=== PATIENT | male | born 1940 | race African-American/Black ===

== ENCOUNTER 2016-09-20 09:29 | Inpatient (IN) | payer OTHER ==
[2016-09-20 10:18] VITALS: BMI 22.1
--- NOTE | 2016-09-20 12:44 | HP ---
CIWA Score - CIWA Score Nausea/Vomitin-Int. Nausea w/Dry Heave Muscle Tremors: 4-Moderate,w/Arms Extend Anxiety: 4-Mod. Anxious/Guarded Agitation: 4-Moderately Restless Paroxysmal Sweats: 1-Minimal Palms Moist Orientation: 0-Oriented Tacttile Disturbances: 3-Moderate Itch/Numb/Burn Auditory Disturbances: 0-None Visual Disturbances: 0-None Headache: 1-Very Mild CIWA-Ar Total Score: 21 Admission ROS BHS - HPI Chief Complaint: DETOX TX FOR ALCOHOL DEPENDENCE Allergies/Adverse Reactions: Allergies Allergy/AdvReac Type Severity Reaction Status Date / Time No Known Allergies Allergy Verified 09/20/16 10:56 History of Present Illness: 76 Y/O AA/MALE WITH A HX OF ALCOHOL AND COCAINE DEPENDENCE SEEKING DETOX TX Exam Limitations: No Limitations - Ebola screening Have you traveled outside of the country in the last 21 days: No Have you had contact with anyone from an Ebola affected area: No Have you been sick,other than usual withdrawal symptoms: No - Review of Systems Constitutional: Chills, Loss of Appetite, Night Sweats, Changes in sleep, Unintentional Wgt. Loss EENT: reports: Blurred Vision (WEARS GLASSES), Dental Problems (BILATERAL DENTURES) Respiratory: reports: No Symptoms reported Cardiac: reports: Lightheadedness GI: reports: Constipated, Diarrhea, Nausea, Poor Appetite, Poor Fluid Intake, Vomiting : reports: Dysuria (SOMETIMES.) Musculoskeletal: reports: Back Pain, Joint Pain (LEFT LEG), Muscle Pain, Other ( PT STATES USES CANE BUT NOT WITH PATIENT NOW..."STOLEN".) Integumentary: reports: No Symptoms Reported Neuro: reports: Headache, Numbness, Tingling, Tremors, Unsteady Gait, Dizziness Endocrine: reports: No Symptoms Reported Hematology: reports: No Symptoms Reported Psychiatric: reports: Orientated x3, Anxious, Depressed Other Systems: Reviewed and Negative Patient History - Patient Medical History Hx Anemia: No Hx Asthma: No Hx Chronic Obstructive Pulmonary Disease (COPD): No Hx Cancer: No Hx Cardiac Disorders: No Hx Congestive Heart Failure: No Hx Hypertension: Yes (TAKES MED) Hx Hypercholesterolemia: No Hx Pacemaker: No HX Cerebrovascular Accident: No Hx Seizures: No Hx Dementia: No Hx Diabetes: No Hx Gastrointestinal Disorders: No Hx Liver Disease: No Hx Genitourinary Disorders: No Hx Sexually Transmitted Disorders: No Hx Renal Disease (ESRD): No Hx Thyroid Disease: No Hx Human Immunodeficiency Virus (HIV): No (NEGATIVE HX) Hx Hepatitis C: Yes (NO TREATMENT) Hx Depression: Yes (ON ZOLOFT) Hx Suicide Attempt: No Hx Bipolar Disorder: No Hx Schizophrenia: No - Patient Surgical History Past Surgical History: Yes Hx Neurologic Surgery: No Hx Cataract Extraction: No Hx Cardiac Surgery: No Hx Lung Surgery: No Hx Breast Surgery: No Hx Breast Biopsy: No Hx Abdominal Surgery: No Hx Appendectomy: No Hx Cholecystectomy: No Hx Genitourinary Surgery: No Hx Orthopedic Surgery: Yes (left foot callous removal) Anesthesia Reaction: No - PPD History Previous Implant?: Yes Documented Results: Negative w/proof Implanted On Prior [facility] Admission?: Yes Date: 01/05/15 Results: 0 mm PPD to be Administered?: Yes - Reproductive History Patient is a Female of Child Bearing Age (11 -55 yrs old): No (MALE) - Smoking Cessation Smoking history: Current every day smoker Have you smoked in the past 12 months: Yes Aproximately how many cigarettes per day: 10 Hx Chewing Tobacco Use: No Initiated information on smoking cessation: Yes 'Breaking Loose' booklet given: 09/20/16 - Substance & Tx. History Hx Alcohol Use: Yes (VODKA/BEER) Hx Substance Use: Yes (CRACK) Substance Use Type: Alcohol, Cocaine Hx Substance Use Treatment: Yes ([facility]) - Substances Abused Crack Route: Smoking Frequency: Daily Amount used: $100-150 Age of first use: 45 Date of Last Use: 09/18/16 Alcohol-vodka/beer Route: Oral Frequency: Daily Amount used: 2 pts./2 (40 oz.) Age of first use: 20 Date of Last Use: 09/18/16 Family Disease History - Family Disease History Family Disease History: Other: Brother (ONE BROTHER ADDICTED TO ETOH AND DRUGS AND ) Admission Physical Exam BHS - Vital Signs Vital Signs: Vital Signs - 24 hr 09/20/16 10:17 Temperature 96.8 F L Pulse Rate 72 Respiratory 18 Rate Blood Pressure 172/87 - Physical General Appearance: Yes: Moderate Distress, Irritable, Sweating, Anxious HEENTM: Yes: EOMI, Normocephalic, ALEXANDRA, Pharynx Normal, Nasal Congestion, Rhinorrhea Respiratory: Yes: Chest Non-Tender, Lungs Clear, Normal Breath Sounds, No Respiratory Distress Neck: Yes: Supple, Trachea in good position Breast: Yes: Breast Exam Deferred Cardiology: Yes: Regular Rhythm, Regular Rate, S1, S2 Abdominal: Yes: Normal Bowel Sounds, Non Tender, Soft Genitourinary: Yes: Other (N/C) Back: Yes: Within Normal Limits Musculoskeletal: Yes: full range of Motion, Gait Steady Extremities: Yes: Normal Range of Motion, Non-Tender, Tremors 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 intact, Fully Oriented, Alert Integumentary: Yes: Dry, Warm Lymphatic: Yes: Within Normal Limits - Diagnostic (1) Alcohol dependence with uncomplicated withdrawal Current Visit: Yes Status: Acute (2) Weight decreased Current Visit: Yes Status: Chronic (3) Cocaine dependence, uncomplicated Current Visit: Yes Status: Acute Cleared for Admission [facility] - Detox or Rehab [facility] Level of Care: Medically Managed Detox Regimen/Protocol: Librium S Breath Alcohol Content Breath Alcohol Content: 0 Urine Drug Screen - Results Drug Screen Negative: No Urine Drug Screen Results: ZACHARY-Cocaine
[2016-09-20] MEDS ORDERED: MAG HYDROX/AL HYDROX/SIMETH 30 ML UNIT-DOSE CUP PO PRN (12:52)
[2016-09-20] MEDS ORDERED: NICOTINE POLACRILEX 2 MG GUM BUC PRN (12:52)
[2016-09-20] MEDS ORDERED: LOPERAMIDE HCL 2 MG CAPSULE PO PRN (12:52)
[2016-09-20] MEDS ORDERED: P-EPHED 60MG/TRIPROLIDI 2.5MG TABLET PO PRN (12:52)
[2016-09-20] MEDS ORDERED: MAGNESIUM HYDROX 2400MG/30ML ORAL SUSPENSION 30 ML CUP PO PRN (12:52)
[2016-09-20] MEDS ORDERED: MAGNESIUM CITRATE 300 ML BOTTLE PO PRN (12:52)
[2016-09-20] MEDS ORDERED: hydrOXYzine PAMOATE 25 MG CAPSULE (FP) PO PRN (12:52)
[2016-09-20] MEDS ORDERED: ACETAMINOPHEN 325 MG TABLET (FP) PO PRN (12:52)
[2016-09-20] MEDS ORDERED: chlordiazePOXIDE HCL 25 MG CAPSULE PO PRN (12:52)
[2016-09-20] MEDS ORDERED: IBUPROFEN 400 MG TABLET (FP) PO PRN (12:52)
[2016-09-20] MEDS ORDERED: MENTHOL/PHENOL 1 EACH UD MM PRN (12:52)
[2016-09-20] MEDS ORDERED: guaiFENesin/D-METHORPHAN HB 10 ML UNIT-DOSE CUPS PO PRN (12:52)
[2016-09-20] MEDS ORDERED: chlordiazePOXIDE HCL 25 MG CAPSULE PO ONE (13:06)
[2016-09-20] MEDS: NICOTINE 14 MG/24 HOURS TOPICAL PATCH TD SCH (14:51)
[2016-09-20] MEDS: LISINOPRIL 10 MG TABLET (FP) PO SCH (15:21)
[2016-09-20] MEDS: chlordiazePOXIDE HCL 25 MG CAPSULE PO SCH ×2 (17:15→22:18)
[2016-09-20 18:16] LABS: URINE APPEARANCE CLEAR; URINE BILIRUBIN NEGATIVE (NEGATIVE); URINE BLOOD NEGATIVE (NEGATIVE); URINE COLOR LTYELLOW; URINE GLUCOSE (UA) NEGATIVE (NEGATIVE); URINE KETONE NEGATIVE (NEGATIVE); URINE LEUK ESTERASE TRACE (NEGATIVE); URINE NITRITE NEGATIVE (NEGATIVE); URINE PROTEIN NEGATIVE (NEGATIVE); URINE UROBILINOGEN NEGATIVE E.U./dl (0.2-1.0)
[2016-09-20 18:20] LABS: URINE MUCUS RARE; URINE RBC 1 /hpf (0-3); URINE WBC 2 /hpf (3-5)
[2016-09-20] MEDS ORDERED: SILVER SULFADIAZINE 1% TOP CREAM 400 GM JAR TP SCH (22:00)
[2016-09-20] MEDS: THIAMINE HCL 100 MG TABLET (FP) PO SCH (22:19)
[2016-09-20] MEDS: diphenhydrAMINE HCL 50 MG CAPSULE PO PRN (22:19)
[2016-09-21] MEDS: chlordiazePOXIDE HCL 25 MG CAPSULE PO SCH ×4 (05:30→23:03)
[2016-09-21 08:54] LABS: HIV 1 & 2 AB NEGATIVE; HIV 1 AGp24 NEGATIVE
[2016-09-21 10:11] LABS: MCHC 32.7 g/dl (32.0-35.9); MEAN CELL VOLUME 97.8 fl (80-96); MEAN PLT VOLUME 9.8 fl (7.5-11.1); PLATELET COUNT 143 K/MM3 (134-434); RDW 13.7 % (11.9-15.9); WHITE BLOOD COUNT 7.3 K/mm3 (4.0-10.0)
[2016-09-21] MEDS: PRENATAL VITAMINS W/ FOLIC ACID TABLET (FP) PO SCH (10:33)
[2016-09-21] MEDS: LISINOPRIL 10 MG TABLET (FP) PO SCH (10:33)
[2016-09-21] MEDS: NICOTINE 14 MG/24 HOURS TOPICAL PATCH TD SCH (10:34)
--- NOTE | 2016-09-21 10:47 | PN ---
S CIWA - CIWA Score Nausea/Vomitin-No Nausea/No Vomiting Muscle Tremors: 4-Moderate,w/Arms Extend Anxiety: 3 Agitation: 4-Moderately Restless Paroxysmal Sweats: 3 Orientation: 0-Oriented Tacttile Disturbances: 0-None Auditory Disturbances: 0-None Visual Disturbances: 0-None Headache: 1-Very Mild CIWA-Ar Total Score: 15 BHS Progress Note (SOAP) Subjective: tired irritable agitation anxiety sweats Objective: 09/21/16 10:46 Vital Signs Temperature 98.1 F 09/21/16 06:54 Pulse Rate 94 H 09/21/16 06:54 Respiratory Rate 18 09/21/16 06:54 Blood Pressure 89/59 09/21/16 06:54 O2 Sat by Pulse Oximetry (%) Laboratory Tests 09/20/16 09/20/16 09/21/16 12:40 14:00 06:00 WBC 7.3 RBC 4.92 Hgb 15.7 D Hct 48.1 MCV 97.8 H MCHC 32.7 RDW 13.7 D Plt Count 143 MPV 9.8 Urine Color Ltyellow Urine Appearance Clear Urine pH 6.0 Ur Specific [place] 1.015 Urine Protein Negative Urine Glucose (UA) Negative Urine Ketones Negative Urine Blood Negative Urine Nitrite Negative Urine Bilirubin Negative Urine Urobilinogen Negative Ur Leukocyte Esterase Trace H Urine RBC 1 Urine WBC 2 Ur Epithelial Cells Rare Urine Mucus Rare HIV 1&2 Antibody Screen Negative HIV P24 Antigen Negative labs pending awake/alert lying in bed no acute distress Assessment: 09/21/16 10:47 withdrawal sx Plan: continue detox increase fluids labs pending
[2016-09-21 10:51] LABS: ALBUMIN 3.3 g/dl (3.4-5.0); BILIRUBIN,TOTAL 0.4 mg/dL (0.2-1.0); COCKROFT - GAULT 51.18; CREATININE 1.2 mg/dL (0.7-1.3); TOT PROT 6.9 g/dl (6.4-8.2)
--- NOTE | 2016-09-21 15:15 | CONSULT ---
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 Substance Abuse History: - Smoking Cessation. Smoking history: Current every day smoker. Have you smoked in the past 12 months: Yes. Aproximately how many cigarettes per day: 10. Hx Chewing Tobacco Use: No. Initiated information on smoking cessation: Yes. 'Breaking Loose' booklet given: 09/20/16. - Substance & Tx. History. Hx Alcohol Use: Yes (VODKA/BEER). Hx Substance Use: Yes (CRACK) . Substance Use Type: Alcohol, Cocaine. Hx Substance Use Treatment: Yes ([facility]). - Substances Abused. Crack. Route: Smoking. Frequency: Daily. Amount used: $100-150. Age of first use: 45. Date of Last Use: 09/18/16. Alcohol-vodka/beer. Route: Oral. Frequency: Daily. Amount used: 2 pts./2 (40 oz.). Age of first use: 20. Date of Last Use: 09/18/16. Confirmed by patient. Medical History: Hypertension,hepatitis C and lower back pain.Patient uses a cane for ambulation. Psychiatric History: First contact with Psychiatry occurred in 2009 through a stay at a 28 day inpatient rehabilitation program in [place], [place].Mr Segundo reports that he was diagnosed,then,with MDD and prescribed zoloft.Did not follow up with aftercare.Patient states that he was admitted to a mental health facility in [facility] three months ago (it is not clear whether it was detox/ rehab or an inpatient psychiatric unit).Regardless,he was again offered zoloft for antidepressant treatment.Mr Segundo explains that he moved to [facility] after discharge.No OPD care.Has not taken zoloft (50 mg/day) for several months.Patient denies history of suicide attempts. Physical/Sexual Abuse/Trauma History: Patient denies. Additional Comment: Urine Drug Screen Results: ZACHARY-Cocaine.Noted. Mental Status Exam - Mental Status Exam Alert and Oriented to: Time (slow,unsteady gait ; moves around in a stooped posture ; needs cane for ambulation), Place, Person Cognitive Function: Grossly Intact Patient Appearance: Disheveled Mood: Withdrawn, Apprehensive Affect: Mood Congruent Patient Behavior: Fatigued, Appropriate, Cooperative Speech Pattern: Clear, Appropriate Voice Loudness: Moderately Soft/Quiet Thought Process: Goal Oriented Thought Disorder: Not Present Hallucinations: Denies Suicidal Ideation: Denies Homicidal Ideation: Denies Insight/Judgement: Poor Sleep: Fair Appetite: Fair Gait/Station: Other (slow,unsteady gait ; moves around in a stooped posture ; need cane for ambulation) Psychiatric Findings - Problem List ([place] 1, 2,3) (1) Alcohol dependence with uncomplicated withdrawal Current Visit: Yes Status: Acute (2) Cocaine dependence, uncomplicated Current Visit: Yes Status: Acute (3) Nicotine dependence Current Visit: Yes Status: Acute Qualifiers: Nicotine product type: cigarettes Substance use status: uncomplicated Qualified Code(s): F17.210 - Nicotine dependence, cigarettes, uncomplicated (4) Substance induced mood disorder Current Visit: Yes Status: Acute (5) Weight decreased Current Visit: Yes Status: Chronic (6) Arthritis Current Visit: Yes Status: Chronic (7) HTN (hypertension) Current Visit: Yes Status: Chronic Qualifiers: Hypertension type: essential hypertension Qualified Code(s): I10 - Essential (primary) hypertension (8) Hepatitis C infection Current Visit: Yes Status: Chronic Qualifiers: Viral hepatitis chronicity: chronic Hepatic coma status: without hepatic coma Qualified Code(s): B18.2 - Chronic viral hepatitis C - Initial Treatment Plan Initial Treatment Plan: Psychoeducation.Detoxification.Observation.Review of pharmacy claims indicates current treatment with a psychostimulant (amphetamine salt/generic for adderall).Not on sertraline (last prescribed on 09/2015).
[2016-09-21] MEDS: THIAMINE HCL 100 MG TABLET (FP) PO SCH (23:03)
[2016-09-22] MEDS: chlordiazePOXIDE HCL 25 MG CAPSULE PO SCH ×2 (05:18→10:35)
--- NOTE | 2016-09-22 08:28 | EKG ---
Test Reason : Blood Pressure : / mmHG Vent. Rate : 071 BPM Atrial Rate : 071 BPM P-R Int : 182 ms QRS Dur : 096 ms QT Int : 398 ms P-R-T Axes : 054 -29 007 degrees QTc Int : 432 ms NORMAL SINUS RHYTHM POSSIBLE ANTEROSEPTAL INFARCT , AGE UNDETERMINED ABNORMAL ECG NO PREVIOUS ECGS AVAILABLE Confirmed by DAYNA CALDERON, BRIDGER ([id number]) on 09/22/2016 8:27:47 AM Referred By: Stuart Del Rio Confirmed By:BRIDGER MCINTOSH MD
[2016-09-22] MEDS: NICOTINE 14 MG/24 HOURS TOPICAL PATCH TD SCH (10:35)
[2016-09-22] MEDS: PRENATAL VITAMINS W/ FOLIC ACID TABLET (FP) PO SCH (10:35)
[2016-09-22] MEDS: LISINOPRIL 10 MG TABLET (FP) PO SCH (10:35)
--- NOTE | 2016-09-22 11:51 | EKG ---
Test Reason : Blood Pressure : / mmHG Vent. Rate : 080 BPM Atrial Rate : 080 BPM P-R Int : 174 ms QRS Dur : 098 ms QT Int : 386 ms P-R-T Axes : 059 -43 006 degrees QTc Int : 445 ms NORMAL SINUS RHYTHM POSSIBLE LEFT ATRIAL ENLARGEMENT LEFT AXIS DEVIATION ANTEROSEPTAL INFARCT (CITED ON OR BEFORE 20-SEP-2016) ABNORMAL ECG WHEN COMPARED WITH ECG OF 20-SEP-2016 14:07, QUESTIONABLE CHANGE IN INITIAL FORCES OF SEPTAL LEADS T WAVE AMPLITUDE HAS INCREASED IN LATERAL LEADS Confirmed by SARAH CALDERON, YOCASTA ([id number]) on 09/22/2016 11:50:56 AM Referred By: Stuart Del Rio Confirmed By:YOCASTA SMITH MD
--- NOTE | 2016-09-22 16:06 | PN ---
S CIWA - CIWA Score Nausea/Vomitin Muscle Tremors: 3 Anxiety: 3 Agitation: 2 Paroxysmal Sweats: 3 Orientation: 0-Oriented Tacttile Disturbances: 1-Very Mild Itch/Numbness Auditory Disturbances: 0-None Visual Disturbances: 0-None Headache: 0-None Present CIWA-Ar Total Score: 14 S Progress Note (SOAP) Subjective: INTERRUPTED SLEEP, SWEATS.SHAKES , Objective: 09/22/16 16:05 Vital Signs Temperature 96.9 F L 09/22/16 14:05 Pulse Rate 84 09/22/16 14:05 Respiratory Rate 20 09/22/16 14:05 Blood Pressure 147/99 09/22/16 14:05 O2 Sat by Pulse Oximetry (%) Laboratory Tests 09/20/16 09/20/16 09/21/16 12:40 14:00 06:00 WBC 7.3 RBC 4.92 Hgb 15.7 D Hct 48.1 MCV 97.8 H MCHC 32.7 RDW 13.7 D Plt Count 143 MPV 9.8 Sodium Potassium Chloride Carbon Dioxide Anion Gap BUN Creatinine Creat Clearance w eGFR Random Glucose Calcium Total Bilirubin AST ALT Alkaline Phosphatase Total Protein Albumin Urine Color Ltyellow Urine Appearance Clear Urine pH 6.0 Ur Specific [place] 1.015 Urine Protein Negative Urine Glucose (UA) Negative Urine Ketones Negative Urine Blood Negative Urine Nitrite Negative Urine Bilirubin Negative Urine Urobilinogen Negative Ur Leukocyte Esterase Trace H Urine RBC 1 Urine WBC 2 Ur Epithelial Cells Rare Urine Mucus Rare RPR Titer HIV 1&2 Antibody Screen Negative HIV P24 Antigen Negative 09/21/16 09/21/16 06:00 06:00 WBC RBC Hgb Hct MCV MCHC RDW Plt Count MPV Sodium 140 Potassium 4.6 Chloride 105 Carbon Dioxide 27 Anion Gap 8 BUN 21 H Creatinine 1.2 Creat Clearance w eGFR 59.02 Random Glucose 88 Calcium 9.0 Total Bilirubin 0.4 AST 38 H D ALT 51 D Alkaline Phosphatase 75 Total Protein 6.9 Albumin 3.3 L Urine Color Urine Appearance Urine pH Ur Specific [place] Urine Protein Urine Glucose (UA) Urine Ketones Urine Blood Urine Nitrite Urine Bilirubin Urine Urobilinogen Ur Leukocyte Esterase Urine RBC Urine WBC Ur Epithelial Cells Urine Mucus RPR Titer Nonreactive HIV 1&2 Antibody Screen HIV P24 Antigen PT AOX3 IN NAD AMBULATING Assessment: 09/22/16 16:05 WITHDRAWAL SX;S Plan: CONT. DETOX INCREASE FLUIDS
[2016-09-22] MEDS: chlordiazePOXIDE 5 MG CAPSULE PO SCH ×2 (17:38→22:48)
[2016-09-22] MEDS: THIAMINE HCL 100 MG TABLET (FP) PO SCH (22:48)
[2016-09-22] MEDS: diphenhydrAMINE HCL 50 MG CAPSULE PO PRN (22:50)
[2016-09-23] MEDS: chlordiazePOXIDE 5 MG CAPSULE PO SCH ×2 (05:45→10:43)
[2016-09-23] MEDS: PRENATAL VITAMINS W/ FOLIC ACID TABLET (FP) PO SCH (10:43)
[2016-09-23] MEDS: NICOTINE 14 MG/24 HOURS TOPICAL PATCH TD SCH (10:44)
[2016-09-23] MEDS: LISINOPRIL 10 MG TABLET (FP) PO SCH (10:44)
--- NOTE | 2016-09-23 12:02 | PN ---
BHS Progress Note (SOAP) Subjective: sweats interrupted sleep Objective: 09/23/16 12:01 Vital Signs Temperature 95.5 F L 09/23/16 09:41 Pulse Rate 85 09/23/16 09:41 Respiratory Rate 16 09/23/16 09:41 Blood Pressure 161/85 09/23/16 09:41 O2 Sat by Pulse Oximetry (%) awake/alert lying in bed no acute distress Assessment: 09/23/16 12:02 withdrawal sx Plan: continue detox d/c in am
[2016-09-23] MEDS: chlordiazePOXIDE HCL 10 MG CAPSULE PO SCH ×2 (17:54→22:20)
[2016-09-23] MEDS: diphenhydrAMINE HCL 50 MG CAPSULE PO PRN (22:20)
[2016-09-23] MEDS: THIAMINE HCL 100 MG TABLET (FP) PO SCH (22:20)
[2016-09-24] MEDS: chlordiazePOXIDE HCL 10 MG CAPSULE PO SCH ×2 (05:22→12:11)
--- NOTE | 2016-09-24 09:14 | PN ---
S Progress Note (SOAP) Subjective: alert,no complaint Objective: 09/24/16 09:13 Vital Signs Temperature 96.3 F L 09/24/16 06:00 Pulse Rate 66 09/24/16 06:00 Respiratory Rate 18 09/24/16 06:00 Blood Pressure 118/70 09/24/16 06:00 O2 Sat by Pulse Oximetry (%) Assessment: 09/24/16 09:13 detox completed,no withdrawal symptom Plan: transfer to rehab tor continuing care
--- NOTE | 2016-09-24 10:28 | DS ---
[facility] Detox Discharge Summary Admission Date: 09/20/16 Discharge Date: 09/24/16 - History Present History: Alcohol Dependence, Cocaine Dependence Additional Comments: transfer to [facility] for continue further level of care Pertinent Past History: weight decreased - Physical Exam Results Vital Signs: Vital Signs Temperature 96.3 F L 09/24/16 06:00 Pulse Rate 66 09/24/16 06:00 Respiratory Rate 18 09/24/16 06:00 Blood Pressure 118/70 09/24/16 06:00 O2 Sat by Pulse Oximetry (%) Pertinent Admission Physical Exam Findings: withdrawal symptom - Treatment Hospital Course: Detox Protocol Followed, Detoxed Safely, Responded well, Discharged Condition Good, Rehab Referral Accepted Patient has Accepted a Rehab Referral to: [facility] - Medication Discharge Medications: Ambulatory Orders Sertraline HCl [Zoloft -] 50 mg PO DAILY #30 tablet 07/18/13 Lisinopril [Prinivil] 5 mg PO DAILY 09/20/16 - AMA Did Patient Leave Against Medical Advice: No
[2016-09-24] MEDS: PRENATAL VITAMINS W/ FOLIC ACID TABLET (FP) PO SCH (10:38)
[2016-09-24] MEDS: LISINOPRIL 10 MG TABLET (FP) PO SCH (10:39)
[2016-09-24] MEDS: NICOTINE 14 MG/24 HOURS TOPICAL PATCH TD SCH (10:39)
--- NOTE | 2016-09-24 14:19 | HP ---
Psychiatrist Admission - Data Date of interview: 09/24/16 Admission source: [address] [place] [address] detox Identifying data: This is the first admission to [address] [place] [address] inpatient rehabiloitation for this 76 years old AA male ,retired,undomiciled. Medical History: Significant for Chronic arthritis,HTN,Hep C. Psychiatric History: Reports first contact with psychiatrist in 2009 while in inpatient rehabilitaion center in [facility] to address depressed mood, insomnia.Patient was dx with MDD and placed on Zoloft with some response.Patient reports noncompliance with psychiatric aftercare.Denies psychiatric hospitalizations.Currently he sees psychiatrist in [facility].Current medications:Zoloft 50 mg po daily. Physical/Sexual Abuse/Trauma History: denies Vital Signs: Vital Signs - 24 hr 09/23/16 09/23/16 09/23/16 14:24 17:25 22:09 Temperature 98.2 F 98.6 F 97.2 F L Pulse Rate 79 69 85 Respiratory 18 20 16 Rate Blood Pressure 160/97 142/83 148/88 09/24/16 09/24/16 09/24/16 00:30 03:30 06:00 Temperature 96.3 F L Pulse Rate 66 Respiratory 18 18 18 Rate Blood Pressure 118/70 09/24/16 09/24/16 10:48 12:45 Temperature 96.0 F L 97.4 F L Pulse Rate 89 86 Respiratory 18 18 Rate Blood Pressure 158/89 135/88 Allergies/Adverse Reactions: Allergies Allergy/AdvReac Type Severity Reaction Status Date / Time No Known Allergies Allergy Verified 09/24/16 15:15 Date of last physical exam: 09/20/16 Concur with the findings of this exam: Yes - Substance Abuse/Tx History Hx Alcohol Use: Yes (reports drinking since 20 years old) Hx Substance Use: No (coccaine since 1984) Substance Use Type: Alcohol, Cocaine Hx Substance Use Treatment: Yes (completed care home inpatient 2 years ago,3 years abstinence is the longest) - Admission Criteria Previous failed treatment: Yes Poor recovery environment: Yes Comorbidities: Yes Lacks judgement: Yes Mental Status Exam - Mental Status Exam Alert and Oriented to: Time, Place, Person Cognitive Function: Grossly Intact Patient Appearance: Unkempt Mood: Sad Affect: Mood Congruent, Labile Patient Behavior: Cooperative Speech Pattern: Clear Voice Loudness: Normal Thought Process: Goal Oriented Thought Disorder: Not Present Hallucinations: Denies Suicidal Ideation: Denies Homicidal Ideation: Denies Insight/Judgement: Fair Sleep: Fair Appetite: Fair Muscle strength/Tone: Normal Gait/Station: Normal Psychiatric Findings - Problem List ([place] 1, 2,3) (1) Alcohol dependence with uncomplicated withdrawal Current Visit: Yes Status: Chronic (2) Cocaine dependence, uncomplicated Current Visit: Yes Status: Chronic (3) Nicotine dependence Current Visit: Yes Status: Chronic Qualifiers: Nicotine product type: cigarettes Substance use status: uncomplicated Qualified Code(s): F17.210 - Nicotine dependence, cigarettes, uncomplicated (4) Substance induced mood disorder Current Visit: Yes Status: Chronic (5) Arthritis Current Visit: Yes Status: Chronic (6) HTN (hypertension) Current Visit: Yes Status: Chronic Qualifiers: Hypertension type: essential hypertension Qualified Code(s): I10 - Essential (primary) hypertension (7) Hepatitis C infection Current Visit: Yes Status: Chronic Qualifiers: Viral hepatitis chronicity: chronic Hepatic coma status: without hepatic coma Qualified Code(s): B18.2 - Chronic viral hepatitis C (8) Weight decreased Current Visit: Yes Status: Chronic - Initial Treatment Plan Initial Treatment Plan: Continue Zoloft 50 mg po daily. Will monitor progress.
[2016-09-24] MEDS: THIAMINE HCL 100 MG TABLET (FP) PO SCH (21:07)
[2016-09-24] MEDS: diphenhydrAMINE HCL 50 MG CAPSULE PO PRN (21:07)
[2016-09-25] MEDS: PRENATAL VITAMINS W/ FOLIC ACID TABLET (FP) PO SCH (09:41)
[2016-09-25] MEDS: NICOTINE 14 MG/24 HOURS TOPICAL PATCH TD SCH (09:41)
[2016-09-25] MEDS: LISINOPRIL 10 MG TABLET (FP) PO SCH (09:41)
[2016-09-25] MEDS: SERTRALINE HCL 50 MG TABLET (FP) PO SCH (09:41)
[2016-09-25] MEDS: THIAMINE HCL 100 MG TABLET (FP) PO SCH (21:05)
[2016-09-25] MEDS: diphenhydrAMINE HCL 50 MG CAPSULE PO PRN (21:05)
[2016-09-26] MEDS: LISINOPRIL 10 MG TABLET (FP) PO SCH (09:43)
[2016-09-26] MEDS: PRENATAL VITAMINS W/ FOLIC ACID TABLET (FP) PO SCH (09:43)
[2016-09-26] MEDS: NICOTINE 14 MG/24 HOURS TOPICAL PATCH TD SCH (09:43)
[2016-09-26] MEDS: SERTRALINE HCL 50 MG TABLET (FP) PO SCH (09:43)
[2016-09-26] MEDS: diphenhydrAMINE HCL 50 MG CAPSULE PO PRN (21:04)
[2016-09-26] MEDS: THIAMINE HCL 100 MG TABLET (FP) PO SCH (21:04)
[2016-09-27] MEDS: SERTRALINE HCL 50 MG TABLET (FP) PO SCH (09:56)
[2016-09-27] MEDS: NICOTINE 14 MG/24 HOURS TOPICAL PATCH TD SCH (09:56)
[2016-09-27] MEDS: LISINOPRIL 10 MG TABLET (FP) PO SCH (09:56)
[2016-09-27] MEDS: PRENATAL VITAMINS W/ FOLIC ACID TABLET (FP) PO SCH (09:57)
[2016-09-27] MEDS: THIAMINE HCL 100 MG TABLET (FP) PO SCH (21:06)
[2016-09-27] MEDS: diphenhydrAMINE HCL 50 MG CAPSULE PO PRN (21:06)
[2016-09-28] MEDS: PRENATAL VITAMINS W/ FOLIC ACID TABLET (FP) PO SCH (09:58)
[2016-09-28] MEDS: SERTRALINE HCL 50 MG TABLET (FP) PO SCH (09:58)
[2016-09-28] MEDS: LISINOPRIL 10 MG TABLET (FP) PO SCH (09:58)
[2016-09-28] MEDS: NICOTINE 14 MG/24 HOURS TOPICAL PATCH TD SCH (09:58)
[2016-09-28] MEDS: THIAMINE HCL 100 MG TABLET (FP) PO SCH (21:07)
[2016-09-28] MEDS: diphenhydrAMINE HCL 50 MG CAPSULE PO PRN (21:08)
[2016-09-29] MEDS: PRENATAL VITAMINS W/ FOLIC ACID TABLET (FP) PO SCH (09:41)
[2016-09-29] MEDS: SERTRALINE HCL 50 MG TABLET (FP) PO SCH (09:41)
[2016-09-29] MEDS: LISINOPRIL 10 MG TABLET (FP) PO SCH (09:42)
[2016-09-29] MEDS: NICOTINE 14 MG/24 HOURS TOPICAL PATCH TD SCH (09:43)
[2016-09-29] MEDS: diphenhydrAMINE HCL 50 MG CAPSULE PO PRN (21:05)
[2016-09-29] MEDS: THIAMINE HCL 100 MG TABLET (FP) PO SCH (21:05)
[2016-09-30] MEDS: PRENATAL VITAMINS W/ FOLIC ACID TABLET (FP) PO SCH (10:01)
[2016-09-30] MEDS: LISINOPRIL 10 MG TABLET (FP) PO SCH (10:01)
[2016-09-30] MEDS: NICOTINE 14 MG/24 HOURS TOPICAL PATCH TD SCH (10:01)
[2016-09-30] MEDS: SERTRALINE HCL 50 MG TABLET (FP) PO SCH (10:01)
[2016-09-30] MEDS: THIAMINE HCL 100 MG TABLET (FP) PO SCH (21:06)
[2016-09-30] MEDS: diphenhydrAMINE HCL 50 MG CAPSULE PO PRN (21:07)
[2016-10-01] MEDS: PRENATAL VITAMINS W/ FOLIC ACID TABLET (FP) PO SCH (09:30)
[2016-10-01] MEDS: LISINOPRIL 10 MG TABLET (FP) PO SCH (09:30)
[2016-10-01] MEDS: NICOTINE 14 MG/24 HOURS TOPICAL PATCH TD SCH (09:30)
[2016-10-01] MEDS: SERTRALINE HCL 50 MG TABLET (FP) PO SCH (09:30)
[2016-10-01] MEDS: THIAMINE HCL 100 MG TABLET (FP) PO SCH (21:09)
[2016-10-01] MEDS: diphenhydrAMINE HCL 50 MG CAPSULE PO PRN (21:09)
[2016-10-02] MEDS: LISINOPRIL 10 MG TABLET (FP) PO SCH (09:42)
[2016-10-02] MEDS: PRENATAL VITAMINS W/ FOLIC ACID TABLET (FP) PO SCH (09:42)
[2016-10-02] MEDS: SERTRALINE HCL 50 MG TABLET (FP) PO SCH (09:42)
[2016-10-02] MEDS: NICOTINE 14 MG/24 HOURS TOPICAL PATCH TD SCH (09:43)
[2016-10-02] MEDS: THIAMINE HCL 100 MG TABLET (FP) PO SCH (21:07)
[2016-10-02] MEDS: diphenhydrAMINE HCL 50 MG CAPSULE PO PRN (21:08)
[2016-10-03] MEDS: NICOTINE 14 MG/24 HOURS TOPICAL PATCH TD SCH (09:44)
[2016-10-03] MEDS: LISINOPRIL 10 MG TABLET (FP) PO SCH (09:44)
[2016-10-03] MEDS: PRENATAL VITAMINS W/ FOLIC ACID TABLET (FP) PO SCH (09:44)
[2016-10-03] MEDS: SERTRALINE HCL 50 MG TABLET (FP) PO SCH (09:44)
[2016-10-03] MEDS: THIAMINE HCL 100 MG TABLET (FP) PO SCH (21:04)
[2016-10-03] MEDS: diphenhydrAMINE HCL 50 MG CAPSULE PO PRN (21:04)
[2016-10-04] MEDS: SERTRALINE HCL 50 MG TABLET (FP) PO SCH (09:57)
[2016-10-04] MEDS: LISINOPRIL 10 MG TABLET (FP) PO SCH (09:57)
[2016-10-04] MEDS: PRENATAL VITAMINS W/ FOLIC ACID TABLET (FP) PO SCH (09:57)
[2016-10-04] MEDS: NICOTINE 14 MG/24 HOURS TOPICAL PATCH TD SCH (09:57)
[2016-10-04] MEDS: THIAMINE HCL 100 MG TABLET (FP) PO SCH (21:06)
[2016-10-04] MEDS: diphenhydrAMINE HCL 50 MG CAPSULE PO PRN (21:06)
[2016-10-05] MEDS: LISINOPRIL 10 MG TABLET (FP) PO SCH (09:38)
[2016-10-05] MEDS: PRENATAL VITAMINS W/ FOLIC ACID TABLET (FP) PO SCH (09:38)
[2016-10-05] MEDS: SERTRALINE HCL 50 MG TABLET (FP) PO SCH (09:38)
[2016-10-05] MEDS: NICOTINE 14 MG/24 HOURS TOPICAL PATCH TD SCH (09:38)
[2016-10-05] MEDS: diphenhydrAMINE HCL 50 MG CAPSULE PO PRN (21:10)
[2016-10-05] MEDS: THIAMINE HCL 100 MG TABLET (FP) PO SCH (21:10)
[2016-10-06] MEDS: PRENATAL VITAMINS W/ FOLIC ACID TABLET (FP) PO SCH (09:34)
[2016-10-06] MEDS: SERTRALINE HCL 50 MG TABLET (FP) PO SCH (09:34)
[2016-10-06] MEDS: LISINOPRIL 10 MG TABLET (FP) PO SCH (09:34)
[2016-10-06] MEDS: NICOTINE 14 MG/24 HOURS TOPICAL PATCH TD SCH (09:34)
[2016-10-06] MEDS: diphenhydrAMINE HCL 50 MG CAPSULE PO PRN (21:02)
[2016-10-06] MEDS: THIAMINE HCL 100 MG TABLET (FP) PO SCH (21:02)
[2016-10-07] MEDS: LISINOPRIL 10 MG TABLET (FP) PO SCH (09:59)
[2016-10-07] MEDS: SERTRALINE HCL 50 MG TABLET (FP) PO SCH (09:59)
[2016-10-07] MEDS: PRENATAL VITAMINS W/ FOLIC ACID TABLET (FP) PO SCH (09:59)
[2016-10-07] MEDS: NICOTINE 14 MG/24 HOURS TOPICAL PATCH TD SCH (09:59)
[2016-10-07] MEDS: diphenhydrAMINE HCL 50 MG CAPSULE PO PRN (21:05)
[2016-10-07] MEDS: THIAMINE HCL 100 MG TABLET (FP) PO SCH (21:05)
[2016-10-08] MEDS: LISINOPRIL 10 MG TABLET (FP) PO SCH (09:40)
[2016-10-08] MEDS: SERTRALINE HCL 50 MG TABLET (FP) PO SCH (09:40)
[2016-10-08] MEDS: PRENATAL VITAMINS W/ FOLIC ACID TABLET (FP) PO SCH (09:40)
[2016-10-08] MEDS: NICOTINE 14 MG/24 HOURS TOPICAL PATCH TD SCH (09:41)
[2016-10-08] MEDS: diphenhydrAMINE HCL 50 MG CAPSULE PO PRN (21:04)
[2016-10-08] MEDS: THIAMINE HCL 100 MG TABLET (FP) PO SCH (21:04)
[2016-10-09] MEDS: NICOTINE 14 MG/24 HOURS TOPICAL PATCH TD SCH (09:43)
[2016-10-09] MEDS: LISINOPRIL 10 MG TABLET (FP) PO SCH (09:43)
[2016-10-09] MEDS: SERTRALINE HCL 50 MG TABLET (FP) PO SCH (09:43)
[2016-10-09] MEDS: PRENATAL VITAMINS W/ FOLIC ACID TABLET (FP) PO SCH (09:43)
[2016-10-09] MEDS: diphenhydrAMINE HCL 50 MG CAPSULE PO PRN (21:05)
[2016-10-09] MEDS: THIAMINE HCL 100 MG TABLET (FP) PO SCH (21:05)
[2016-10-10] MEDS: SERTRALINE HCL 50 MG TABLET (FP) PO SCH (09:43)
[2016-10-10] MEDS: LISINOPRIL 10 MG TABLET (FP) PO SCH (09:43)
[2016-10-10] MEDS: PRENATAL VITAMINS W/ FOLIC ACID TABLET (FP) PO SCH (09:43)
[2016-10-10] MEDS: NICOTINE 14 MG/24 HOURS TOPICAL PATCH TD SCH (09:44)
[2016-10-10] MEDS: diphenhydrAMINE HCL 50 MG CAPSULE PO PRN (21:02)
[2016-10-10] MEDS: THIAMINE HCL 100 MG TABLET (FP) PO SCH (21:02)
[2016-10-11] MEDS: SERTRALINE HCL 50 MG TABLET (FP) PO SCH (10:05)
[2016-10-11] MEDS: LISINOPRIL 10 MG TABLET (FP) PO SCH (10:05)
[2016-10-11] MEDS: NICOTINE 14 MG/24 HOURS TOPICAL PATCH TD SCH (10:05)
[2016-10-11] MEDS: PRENATAL VITAMINS W/ FOLIC ACID TABLET (FP) PO SCH (10:05)
[2016-10-11] MEDS: THIAMINE HCL 100 MG TABLET (FP) PO SCH (21:24)
[2016-10-11] MEDS: diphenhydrAMINE HCL 50 MG CAPSULE PO PRN (21:24)
[2016-10-12] MEDS: NICOTINE 14 MG/24 HOURS TOPICAL PATCH TD SCH (09:46)
[2016-10-12] MEDS: LISINOPRIL 10 MG TABLET (FP) PO SCH (09:46)
[2016-10-12] MEDS: SERTRALINE HCL 50 MG TABLET (FP) PO SCH (09:46)
[2016-10-12] MEDS: PRENATAL VITAMINS W/ FOLIC ACID TABLET (FP) PO SCH (09:46)
[2016-10-12] MEDS: THIAMINE HCL 100 MG TABLET (FP) PO SCH (21:03)
[2016-10-12] MEDS: diphenhydrAMINE HCL 50 MG CAPSULE PO PRN (21:03)
[2016-10-13] MEDS: LISINOPRIL 10 MG TABLET (FP) PO SCH (09:45)
[2016-10-13] MEDS: PRENATAL VITAMINS W/ FOLIC ACID TABLET (FP) PO SCH (09:45)
[2016-10-13] MEDS: SERTRALINE HCL 50 MG TABLET (FP) PO SCH (09:45)
[2016-10-13] MEDS: NICOTINE 14 MG/24 HOURS TOPICAL PATCH TD SCH (09:45)
[2016-10-13] MEDS: THIAMINE HCL 100 MG TABLET (FP) PO SCH (21:06)
[2016-10-13] MEDS: diphenhydrAMINE HCL 50 MG CAPSULE PO PRN (21:06)
[2016-10-14] MEDS: LISINOPRIL 10 MG TABLET (FP) PO SCH (09:53)
[2016-10-14] MEDS: SERTRALINE HCL 50 MG TABLET (FP) PO SCH (09:53)
[2016-10-14] MEDS: PRENATAL VITAMINS W/ FOLIC ACID TABLET (FP) PO SCH (09:53)
[2016-10-14] MEDS: NICOTINE 14 MG/24 HOURS TOPICAL PATCH TD SCH (09:53)
[2016-10-14] MEDS: diphenhydrAMINE HCL 50 MG CAPSULE PO PRN (21:03)
[2016-10-14] MEDS: THIAMINE HCL 100 MG TABLET (FP) PO SCH (21:03)
[2016-10-15] MEDS: SERTRALINE HCL 50 MG TABLET (FP) PO SCH (09:37)
[2016-10-15] MEDS: PRENATAL VITAMINS W/ FOLIC ACID TABLET (FP) PO SCH (09:37)
[2016-10-15] MEDS: LISINOPRIL 10 MG TABLET (FP) PO SCH (09:37)
[2016-10-15] MEDS: NICOTINE 14 MG/24 HOURS TOPICAL PATCH TD SCH (09:37)
[2016-10-15] MEDS: diphenhydrAMINE HCL 50 MG CAPSULE PO PRN (21:05)
[2016-10-15] MEDS: THIAMINE HCL 100 MG TABLET (FP) PO SCH (21:05)
[2016-10-16] MEDS: NICOTINE 14 MG/24 HOURS TOPICAL PATCH TD SCH (09:37)
[2016-10-16] MEDS: LISINOPRIL 10 MG TABLET (FP) PO SCH (09:37)
[2016-10-16] MEDS: PRENATAL VITAMINS W/ FOLIC ACID TABLET (FP) PO SCH (09:37)
[2016-10-16] MEDS: SERTRALINE HCL 50 MG TABLET (FP) PO SCH (09:37)
[2016-10-16] MEDS: THIAMINE HCL 100 MG TABLET (FP) PO SCH (21:04)
[2016-10-16] MEDS: diphenhydrAMINE HCL 50 MG CAPSULE PO PRN (21:04)
[2016-10-17] MEDS: PRENATAL VITAMINS W/ FOLIC ACID TABLET (FP) PO SCH (09:47)
[2016-10-17] MEDS: NICOTINE 14 MG/24 HOURS TOPICAL PATCH TD SCH (09:47)
[2016-10-17] MEDS: SERTRALINE HCL 50 MG TABLET (FP) PO SCH (09:47)
[2016-10-17] MEDS: LISINOPRIL 10 MG TABLET (FP) PO SCH (09:47)
[2016-10-17] MEDS: diphenhydrAMINE HCL 50 MG CAPSULE PO PRN (21:04)
[2016-10-17] MEDS: THIAMINE HCL 100 MG TABLET (FP) PO SCH (21:04)
[2016-10-18] MEDS: PRENATAL VITAMINS W/ FOLIC ACID TABLET (FP) PO SCH (09:41)
[2016-10-18] MEDS: NICOTINE 14 MG/24 HOURS TOPICAL PATCH TD SCH (09:41)
[2016-10-18] MEDS: SERTRALINE HCL 50 MG TABLET (FP) PO SCH (09:41)
[2016-10-18] MEDS: LISINOPRIL 10 MG TABLET (FP) PO SCH (09:41)
[2016-10-18] MEDS: THIAMINE HCL 100 MG TABLET (FP) PO SCH (21:05)
[2016-10-18] MEDS: diphenhydrAMINE HCL 50 MG CAPSULE PO PRN (21:05)
[2016-10-19] MEDS: PRENATAL VITAMINS W/ FOLIC ACID TABLET (FP) PO SCH (09:42)
[2016-10-19] MEDS: LISINOPRIL 10 MG TABLET (FP) PO SCH (09:42)
[2016-10-19] MEDS: NICOTINE 14 MG/24 HOURS TOPICAL PATCH TD SCH (09:42)
[2016-10-19] MEDS: SERTRALINE HCL 50 MG TABLET (FP) PO SCH (09:42)
[2016-10-19] MEDS: THIAMINE HCL 100 MG TABLET (FP) PO SCH (21:02)
[2016-10-19] MEDS: diphenhydrAMINE HCL 50 MG CAPSULE PO PRN (21:02)
[2016-10-20] MEDS: NICOTINE 14 MG/24 HOURS TOPICAL PATCH TD SCH (09:44)
[2016-10-20] MEDS: SERTRALINE HCL 50 MG TABLET (FP) PO SCH (09:44)
[2016-10-20] MEDS: PRENATAL VITAMINS W/ FOLIC ACID TABLET (FP) PO SCH (09:44)
[2016-10-20] MEDS: LISINOPRIL 10 MG TABLET (FP) PO SCH (09:44)
[2016-10-20] MEDS: THIAMINE HCL 100 MG TABLET (FP) PO SCH (21:06)
[2016-10-20] MEDS: diphenhydrAMINE HCL 50 MG CAPSULE PO PRN (21:06)
[2016-10-21] MEDS: SERTRALINE HCL 50 MG TABLET (FP) PO SCH (09:32)
[2016-10-21] MEDS: PRENATAL VITAMINS W/ FOLIC ACID TABLET (FP) PO SCH (09:32)
[2016-10-21] MEDS: LISINOPRIL 10 MG TABLET (FP) PO SCH (09:33)
[2016-10-21] MEDS: NICOTINE 14 MG/24 HOURS TOPICAL PATCH TD SCH (09:33)
--- NOTE | 2016-10-21 18:53 | PN ---
Psychiatric Progress Note Vital Signs: Vital Signs Period Temp Pulse Resp BP Sys/Brian Pulse Ox Last 24 Hr 98.0 F 65-71 16-18 112-129/70-73 Date of Session: 10/21/16 Chief Complaint:: Discharge Note HPI: Patient addressing Alcohol and Cocaine Dependence comorbid with Nicotine Dependence and Substance-Induced Mood Disorder ROS: Arthritis, HTN, Hep C Current Medications: Active Medications Generic Name Dose Route Start Last Admin Trade Name Freq PRN Reason Stop Dose Admin Acetaminophen 650 mg 09/20/16 12:52 Tylenol - PO Q4H PRN FEVER OR PAIN Al Hydroxide/Mg Hydroxide 30 ml 09/20/16 12:52 Mylanta Oral Suspension - PO Q6H PRN DYSPEPSIA Diphenhydramine HCl 50 mg 09/20/16 12:52 10/20/16 21:06 Benadryl - PO 50 mg HSMR1 PRN Administration INSOMNIA Eucalyptus/Menthol/Phenol/Sorbitol 1 each 09/20/16 12:52 Cepastat Lozenge - MM Q4H PRN SORE THROAT Guaifenesin 10 ml 09/20/16 12:52 Robitussin Dm - PO Q6H PRN COUGH Hydroxyzine Pamoate 25 mg 09/20/16 12:52 Vistaril - PO Q4H PRN AGITATION Ibuprofen 400 mg 09/20/16 12:52 Motrin - PO Q6H PRN SEVERE PAIN Lisinopril 10 mg 09/20/16 15:15 10/21/16 09:33 Prinivil PO 10 mg DAILY ALEJANDRA Administration Loperamide HCl 4 mg 09/20/16 12:52 Imodium - PO Q6H PRN DIARRHEA Magnesium Citrate 300 ml 09/20/16 12:52 Citroma - PO Q48H PRN CONSTIPATION Magnesium Hydroxide 30 ml 09/20/16 12:52 Milk Of Magnesia - PO DAILY PRN CONSTIPATION Nicotine 14 mg 09/20/16 14:13 10/21/16 09:33 Nicoderm Patch - TD Not Given DAILY ALEJANDRA Nicotine Polacrilex 2 mg 09/20/16 12:52 Nicorette Gum - BUC Q2H PRN NICOTINE REPLACEMENT RX Multivit/Folic Acid/Iron 1 tab 09/21/16 10:00 10/21/16 09:32 Vitamins (Sjr) - PO 1 tab DAILY ALEJANDRA Administration Pseudoephedrine/Triprolidine 1 combo 09/20/16 12:52 Actifed - PO TID PRN NASAL CONGESTION Sertraline HCl 50 mg 09/25/16 10:00 10/21/16 09:32 Zoloft - PO 50 mg DAILY ALEJANDRA Administration Thiamine HCl 100 mg 09/20/16 22:00 10/20/16 21:06 Vitamin B1 - PO 100 mg HS ALEJANDRA Administration Current Side Effect: No Lab tests ordered: Yes Lab tests reviewed: Yes Provider note:: Patient will complete this program on 10/22/16. He has met his treatment goals will continue to address his issues at outpatient treatment at [facility] at [address] [place] [address]. 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 He responded well to Zoloft 50 mg po daily. Script for 30 days supply of that medication will be electronically transmitted to [facility] at [address] [place] [address]. He is stable for discharge on 10/22/16 Total face to face time:: 35 Psychiatric Treatment Plan - Problem List (1) Alcohol dependence with uncomplicated withdrawal Current Visit: Yes (2) Cocaine dependence, uncomplicated Current Visit: Yes (3) Nicotine dependence Current Visit: Yes Qualifiers: Nicotine product type: cigarettes Substance use status: uncomplicated Qualified Code(s): F17.210 - Nicotine dependence, cigarettes, uncomplicated (4) Substance induced mood disorder Current Visit: Yes (5) Arthritis Current Visit: Yes (6) HTN (hypertension) Current Visit: Yes Qualifiers: Hypertension type: essential hypertension Qualified Code(s): I10 - Essential (primary) hypertension (7) Hepatitis C infection Current Visit: Yes Qualifiers: Viral hepatitis chronicity: chronic Hepatic coma status: without hepatic coma Qualified Code(s): B18.2 - Chronic viral hepatitis C Initial treatment plan: Patient will be discharged tomorrow and referred to [facility] in [place], [place]
[2016-10-21] MEDS: diphenhydrAMINE HCL 50 MG CAPSULE PO PRN (21:03)
[2016-10-21] MEDS: THIAMINE HCL 100 MG TABLET (FP) PO SCH (21:03)
[2016-10-22 06:30] VITALS: TEMP 97.7
[2016-10-22 09:30] VITALS: BP 145/75; PULSE 71
[2016-10-22] MEDS: SERTRALINE HCL 50 MG TABLET (FP) PO SCH (09:44)
[2016-10-22] MEDS: NICOTINE 14 MG/24 HOURS TOPICAL PATCH TD SCH (09:44)
[2016-10-22] MEDS: PRENATAL VITAMINS W/ FOLIC ACID TABLET (FP) PO SCH (09:44)
[2016-10-22] MEDS: LISINOPRIL 10 MG TABLET (FP) PO SCH (09:44)
== END 2016-10-22 11:15 | disposition home or self-care (01) | DRG 895 ==
LOC: YASAS 09:29 → Y6N 12:01 → Y5N 09-24 12:14
PROVIDERS: ADMIT Internal Medicine Addiction Medicine; ATTEND Psychiatry & Neurology Psychiatry
PROC: HZ42ZZZ Group Counseling for Substance Abuse Treatment, Cognitive-Behavioral (ICD-10-PCS; principal; 2016-10-22)
DX: F10.230 Alcohol dependence with withdrawal, uncomplicated (principal); F14.20 Cocaine dependence, uncomplicated; F17.210 Nicotine dependence, cigarettes, uncomplicated; F19.24 Other psychoactive substance dependence with psychoactive substance-induced mood disorder; M12.9 Arthropathy, unspecified; I10 Essential (primary) hypertension; B18.2 Chronic viral hepatitis C; R63.4 Abnormal weight loss; Z68.22 Body mass index [BMI] 22.0-22.9, adult
CPT/HCPCS: 36415; 80053; 81003; 81015; 85027; 86593; 87389; 93005; 93010

== ENCOUNTER 2017-07-19 08:19 | Inpatient (IN) | payer OTHER ==
--- NOTE | 2017-07-19 10:58 | PN ---
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 Pt is not having difficulty walking or breathing. However we would need clearance from our MD at ED for pt to go to rehab and have bernardino removed and monitor high BP. last BP is 172/88 pulse 96. Report given to Dr. Olson.
[2017-07-19 11:05] VITALS: BMI 20.3
--- NOTE | 2017-07-19 18:31 | HP ---
CIWA Score - CIWA Score Nausea/Vomitin Muscle Tremors: 3 Anxiety: 3 Agitation: 3 Paroxysmal Sweats: 3 Orientation: 0-Oriented Tacttile Disturbances: 1-Very Mild Itch/Numbness Auditory Disturbances: 0-None Visual Disturbances: 0-None Headache: 1-Very Mild CIWA-Ar Total Score: 17 Admission [facility] Chief Complaint: alcohol withdrawal sx Allergies/Adverse Reactions: Allergies Allergy/AdvReac Type Severity Reaction Status Date / Time No Known Allergies Allergy Verified 07/19/17 11:29 History of Present Illness: 77 year old M with a significant PMH of hypertension, hepatitis C and surgery for removal of callous left foot who was sent in by rehab to the emergency department for evaluation of surgical scar and a chest xray. 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 bernardino were removed and patient was cleared. requesting inpatient detoxification from alcohol h/o crack cocaine and nicotine dependence no h/o seizures, no DTs, no si at thist du Exam Limitations: No Limitations - Ebola screening Have you traveled outside of the country in the last 21 days: No (N) Have you had contact with anyone from an Ebola affected area: No Have you been sick,other than usual withdrawal symptoms: Yes (reports he had sx to remove a tumor, left lung sometime in May) Do you have a fever: No - Review of Systems Constitutional: Chills, Diaphoresis, Night Sweats, Changes in sleep, Unintentional Wgt. Loss EENT: reports: No Symptoms Reported Respiratory: reports: Cough (smokers, crack cocaine) Cardiac: reports: No Symptoms Reported GI: reports: Diarrhea, Nausea, Poor Appetite, Poor Fluid Intake, Vomiting, Indigestion, Abdominal cramping Musculoskeletal: reports: No Symptoms Reported Integumentary: reports: Flushing, Sweating Neuro: reports: Headache, Numbness, Tingling, Tremors Endocrine: reports: Increased Thirst Hematology: reports: No Symptoms Reported Psychiatric: reports: Judgement Intact, Mood/Affect Appropiate, Orientated x3, Anxious, Depressed Other Systems: Reviewed and Negative Patient History - Patient Medical History Hx Anemia: No Hx Asthma: No Hx Chronic Obstructive Pulmonary Disease (COPD): No Hx Cancer: Yes (lung cancer removed 2018 s/p surgery) Hx Cardiac Disorders: No Hx Congestive Heart Failure: No Hx Hypertension: Yes Hx Hypercholesterolemia: No Hx Pacemaker: No HX Cerebrovascular Accident: No Hx Seizures: No Hx Dementia: No Hx Diabetes: No Hx Gastrointestinal Disorders: No Hx Liver Disease: No Hx Genitourinary Disorders: No Hx Sexually Transmitted Disorders: No Hx Renal Disease (ESRD): No Hx Thyroid Disease: No Hx Human Immunodeficiency Virus (HIV): No (NEGATIVE HX) Hx Hepatitis C: Yes (NO TREATMENT) Hx Depression: No Hx Suicide Attempt: No Hx Bipolar Disorder: No Hx Schizophrenia: No Other Medical History: loses balance ambulates with cane, - Patient Surgical History Past Surgical History: Yes Hx Neurologic Surgery: No Hx Cataract Extraction: No Hx Cardiac Surgery: No Hx Lung Surgery: No Hx Breast Surgery: No Hx Breast Biopsy: No Hx Abdominal Surgery: No Hx Appendectomy: No Hx Cholecystectomy: No Hx Genitourinary Surgery: No Hx Section: No Hx Orthopedic Surgery: Yes (left foot callous removal) Other Surgical History: removal of tumor, left lung in 05/2017 Anesthesia Reaction: No - PPD History Previous Implant?: Yes Documented Results: Negative w/proof Implanted On Prior [facility] Admission?: Yes Date: 09/22/16 Results: 0 mm PPD to be Administered?: No - Reproductive History Patient is a Female of Child Bearing Age (11 -55 yrs old): No Patient : No - Smoking Cessation Smoking history: Current every day smoker Have you smoked in the past 12 months: Yes Aproximately how many cigarettes per day: 10 Cigars Per Day: 0 Hx Chewing Tobacco Use: No Initiated information on smoking cessation: Yes 'Breaking Loose' booklet given: 07/19/17 - Substance & Tx. History Hx Alcohol Use: Yes Hx Substance Use: Yes Substance Use Type: Alcohol, Cocaine Hx Substance Use Treatment: Yes ( [facility]) - Substances Abused Crack Route: Smoking Frequency: Daily Amount used: $100 Age of first use: 45 Date of Last Use: 07/18/17 Alcohol-beer Route: Oral Frequency: 1-2 times per week Amount used: 1 (16 oz.0 Age of first use: 19 Date of Last Use: 07/18/17 Family Disease History - Family Disease History Family Disease History: Other: Brother (ONE BROTHER ADDICTED TO ETOH AND DRUGS AND ) Admission Physical Exam [facility] - Vital Signs Vital Signs: Vital Signs - 24 hr 07/19/17 11:01 Temperature 96.7 F L Pulse Rate 96 H Respiratory 20 Rate Blood Pressure 172/88 - Physical General Appearance: Yes: Nourished, Appropriately Dressed, Disheveled, Mild Distress, Thin, Tremorous, Irritable, Sweating, Anxious HEENTM: Yes: Within Normal Limits, EOMI, Hearing grossly Normal, Normal ENT Inspection, Normocephalic, Normal Voice, ALEXANDRA, Pharynx Normal Respiratory: Yes: Within Normal Limits, Chest Non-Tender, Lungs Clear, Normal Breath Sounds, No Respiratory Distress, No Accessory Muscle Use Neck: Yes: Within Normal Limits, No masses,lesions,Nodules, Supple, Trachea in good position Breast: Yes: Breast Exam Deferred Cardiology: Yes: Within Normal Limits, Regular Rhythm, Regular Rate, S1, S2 Abdominal: Yes: Within Normal Limits, Normal Bowel Sounds, Non Tender, Flat, Soft, Increased Bowel Sounds Genitourinary: Yes: Within Normal Limits Back: Yes: Within Normal Limits, Normal Inspection Musculoskeletal: Yes: full range of Motion, Pelvis Stable, Other (unsteady gait ambulates with cane) Extremities: Yes: Normal Capillary Refill, Normal Range of Motion, Non-Tender, Tremors Neurological: Yes: director speech II-XII NML intact, Fully Oriented, Alert, Motor Strength 5/5, Normal Response, Depressed Affect Integumentary: Yes: Normal Color, Warm, Moist Lymphatic: Yes: Within Normal Limits - Addiitonal Findings: withdrawal sx - Diagnostic (1) Alcohol dependence with uncomplicated withdrawal Current Visit: No Status: Acute (2) Cocaine dependence Current Visit: No Status: Acute (3) Substance induced mood disorder Current Visit: No Status: Acute (4) Substance-induced sleep disorder Current Visit: No Status: Acute (5) Wound healing, delayed Current Visit: No Status: Acute (6) Arthritis Current Visit: No Status: Chronic (7) Depression Current Visit: No Status: Chronic Qualifiers: Depression Type: unspecified Qualified Code(s): F32.9 - Major depressive disorder, single episode, unspecified (8) HTN (hypertension) Current Visit: No Status: Chronic Qualifiers: Hypertension type: essential hypertension Qualified Code(s): I10 - Essential (primary) hypertension (9) Hepatitis C infection Current Visit: No Status: Chronic Qualifiers: Viral hepatitis chronicity: chronic Hepatic coma status: without hepatic coma Qualified Code(s): B18.2 - Chronic viral hepatitis C (10) Nicotine dependence Current Visit: No Status: Chronic Qualifiers: Nicotine product type: cigarettes Substance use status: in withdrawal Qualified Code(s): F17.213 - Nicotine dependence, cigarettes, with withdrawal (11) Ambulates with cane Current Visit: Yes Status: Acute Cleared for Admission [facility] - Detox or Rehab [facility] Level of Care: Medically Managed Detox Regimen/Protocol: Librium [facility] Breath Alcohol Content Breath Alcohol Content: 0 Urine Drug Screen - Results Drug Screen Negative: No Urine Drug Screen Results: ZACHARY-Cocaine, AMP-Amphetamines
[2017-07-19] MEDS ORDERED: MAGNESIUM CITRATE 300 ML BOTTLE PO PRN (18:32)
[2017-07-19] MEDS ORDERED: MAGNESIUM HYDROX 2400MG/30ML ORAL SUSPENSION 30 ML CUP PO PRN (18:32)
[2017-07-19] MEDS ORDERED: IBUPROFEN 400 MG TABLET (FP) PO PRN (18:32)
[2017-07-19] MEDS ORDERED: LOPERAMIDE HCL 2 MG CAPSULE PO PRN (18:32)
[2017-07-19] MEDS ORDERED: NICOTINE POLACRILEX 2 MG GUM BC PRN (18:32)
[2017-07-19] MEDS ORDERED: MENTHOL/PHENOL 1 EACH UD MM PRN (18:32)
[2017-07-19] MEDS ORDERED: chlordiazePOXIDE HCL 25 MG CAPSULE PO PRN (18:32)
[2017-07-19] MEDS ORDERED: ACETAMINOPHEN 325 MG TABLET (FP) PO PRN (18:32)
[2017-07-19] MEDS ORDERED: MAG HYDROX/AL HYDROX/SIMETH 30 ML UNIT-DOSE CUP PO PRN (18:32)
[2017-07-19] MEDS ORDERED: guaiFENesin/D-METHORPHAN HB 10 ML UNIT-DOSE CUPS PO PRN (18:32)
[2017-07-19] MEDS ORDERED: P-EPHED 60MG/TRIPROLIDI 2.5MG TABLET PO PRN (18:32)
[2017-07-19] MEDS ORDERED: chlordiazePOXIDE HCL 25 MG CAPSULE PO ONE ×2 (19:15→23:15)
[2017-07-19] MEDS ORDERED: chlordiazePOXIDE HCL 25 MG CAPSULE PO SCH (23:00)
[2017-07-19] MEDS: LISINOPRIL 5 MG TABLET (FP) PO SCH (23:15)
[2017-07-19] MEDS: THIAMINE HCL 100 MG TABLET (FP) PO SCH (23:16)
[2017-07-19] MEDS: NICOTINE 14 MG/24 HOURS TOPICAL PATCH TD SCH (23:18)
[2017-07-20 10:34] LABS: HEMATOCRIT 40.7 % (35.4-49); HEMOGLOBIN 13.3 GM/dL (11.7-16.9); MCH 32.2 pg (25.7-33.7); MCHC 32.6 g/dl (32.0-35.9); MEAN CELL VOLUME 98.8 fl (80-96); PLATELET COUNT 179 K/MM3 (134-434); RBC 4.12 M/mm3 (4.00-5.60); RDW 14.8 % (11.9-15.9); WHITE BLOOD COUNT 9.2 K/mm3 (4.0-10.0)
[2017-07-20] MEDS: PRENATAL VITAMINS W/ FOLIC ACID TABLET (FP) PO SCH (10:36)
[2017-07-20] MEDS: SERTRALINE HCL 50 MG TABLET (FP) PO SCH (10:36)
[2017-07-20] MEDS: LISINOPRIL 5 MG TABLET (FP) PO SCH (10:36)
[2017-07-20] MEDS: NICOTINE 14 MG/24 HOURS TOPICAL PATCH TD SCH (10:36)
--- NOTE | 2017-07-20 10:51 | PN ---
[facility] CIWA - CIWA Score Nausea/Vomitin Muscle Tremors: 3 Anxiety: 3 Agitation: 3 Paroxysmal Sweats: 1-Minimal Palms Moist Orientation: 0-Oriented Tacttile Disturbances: 1-Very Mild Itch/Numbness Auditory Disturbances: 1-Very Mild Visual Disturbances: 0-None Headache: 2-Mild CIWA-Ar Total Score: 17 [facility]HS Progress Note (SOAP) Subjective: ALERT,IRRITABLE,ANXIOUS,INTERRUPTED SLEEP,TREMOR Objective: 07/20/17 10:48 Vital Signs Temperature 97.9 F 07/20/17 10:11 Pulse Rate 80 07/20/17 10:11 Respiratory Rate 16 07/20/17 10:11 Blood Pressure 106/103 07/20/17 10:11 O2 Sat by Pulse Oximetry (%) EKG NSR PROLONG QT NO CHEST PAIN,NO SOB,NO DIZZINESS LABS PENDING Assessment: 07/20/17 10:50 WITHDRAWAL SYMPTOM Plan: CONTINUE DETOX
[2017-07-20] MEDS ORDERED: chlordiazePOXIDE HCL 25 MG CAPSULE PO SCH ×3 (11:00→23:00)
--- NOTE | 2017-07-20 11:03 | CONSULT ---
[facility] Psychiatric Consult - Data Date of interview: 07/20/17 Admission source: [facility] Identifying data: This is 77 year old single, homeless, unemployed male, ambulating with cane, with no psychiatric hospitalization history, requesting inpatient detoxification from alcohol with history of crack ,cocaine and nicotine dependence Substance Abuse History: - Smoking Cessation. Smoking history: Current every day smoker. Have you smoked in the past 12 months: Yes. Aproximately how many cigarettes per day: 10. Cigars Per Day: 0. Hx Chewing Tobacco Use: No. Initiated information on smoking cessation: Yes. 'Breaking Loose' booklet given : 07/19/17. - Substance & Tx. History. Hx Alcohol Use: Yes. Hx Substance Use : Yes. Substance Use Type: Alcohol, Cocaine. Hx Substance Use Treatment: Yes ( [facility] rehab). - Substances Abused. Crack. Route: Smoking. Frequency: Daily. Amount used: $100. Age of first use: 45. Date of Last Use: 07/18/17. Alcohol-beer. Route: Oral. Frequency: 1-2 times per week. Amount used: 1 (16 oz.0. Age of first use: 19. Date of Last Use: Medical History: Patient reports significant PMH of hypertension, hepatitis C and surgery for removal of callous left foot who was sent in by rehab to the emergency department for evaluation of surgical scar and a chest xray. 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 bernardino were removed and patient was cleared Psychiatric History: Patient reports history of depression and anxiety, rteports taking prior to admission: Zoloft 100mg poqd Physical/Sexual Abuse/Trauma History: Denies Additional Comment: Zoloft 100mg poqd Mental Status Exam - Mental Status Exam Alert and Oriented to: Person Cognitive Function: Fair Patient Appearance: Unkempt Mood: Sad Affect: Flat Patient Behavior: Sedated Speech Pattern: Delayed Voice Loudness: Mildly Soft/Quiet Thought Process: Circumstantial, Goal Oriented Thought Disorder: Being Controlled Hallucinations: Denies Suicidal Ideation: Denies Homicidal Ideation: Denies Insight/Judgement: Fair Sleep: Fair Appetite: Weight loss Muscle strength/Tone: Mild Hypotonicity Gait/Station: Shuffling Additional Comments: Zoloft 100mg poqd Psychiatric Findings - Problem List (Sieper 1, 2,3) (1) Weight loss Current Visit: Yes Status: Acute (2) Alcohol abuse Current Visit: No Status: Acute (3) Alcohol dependence Current Visit: No Status: Acute (4) Alcohol dependence with uncomplicated withdrawal Current Visit: No Status: Acute (5) Cocaine abuse Current Visit: No Status: Acute (6) Cocaine dependence Current Visit: No Status: Acute (7) Cocaine dependence, uncomplicated Current Visit: No Status: Acute (8) Substance induced mood disorder Current Visit: No Status: Acute (9) Substance-induced sleep disorder Current Visit: No Status: Acute (10) Depression Current Visit: No Status: Chronic Qualifiers: Depression Type: unspecified Qualified Code(s): F32.9 - Major depressive disorder, single episode, unspecified (11) Nicotine dependence Current Visit: No Status: Chronic Qualifiers: Nicotine product type: cigarettes Substance use status: in withdrawal Qualified Code(s): F17.213 - Nicotine dependence, cigarettes, with withdrawal - Initial Treatment Plan Initial Treatment Plan: Zoloft 100mg poqd
[2017-07-20 11:05] LABS: CHLORIDE 108 mmol/L (98-107); POTASSIUM 3.8 mmol/L (3.5-5.1); SODIUM 143 mmol/L (136-145)
[2017-07-20 11:16] LABS: ALBUMIN 2.7 g/dl (3.4-5.0); ALK PHOS 68 U/L (45-117); ANION GAP 10 (8-16); BILIRUBIN,TOTAL 0.4 mg/dL (0.2-1.0); BLOOD UREA NITROGEN 17 mg/dL (7-18); CALCIUM 8.2 mg/dL (8.5-10.1); CO2 25 mmol/L (21-32); CREATININE 0.8 mg/dL (0.7-1.3); GLUCOSE,RANDOM 80 mg/dL (74-106); SGOT/AST 27 U/L (15-37); SGPT/ALT 30 U/L (12-78); TOT PROT 5.7 g/dl (6.4-8.2)
[2017-07-20] MEDS ORDERED: chlordiazePOXIDE HCL 25 MG CAPSULE PO PRN ×2 (11:16→11:19)
--- NOTE | 2017-07-20 17:13 | EKG ---
Test Reason : Blood Pressure : / mmHG Vent. Rate : 073 BPM Atrial Rate : 073 BPM P-R Int : 162 ms QRS Dur : 092 ms QT Int : 408 ms P-R-T Axes : 050 -18 031 degrees QTc Int : 449 ms NORMAL SINUS RHYTHM POSSIBLE LEFT ATRIAL ENLARGEMENT SEPTAL INFARCT (CITED ON OR BEFORE 20-SEP-2016) ABNORMAL ECG WHEN COMPARED WITH ECG OF 10-MAR-2017 19:08, QUESTIONABLE CHANGE IN INITIAL FORCES OF ANTEROSEPTAL LEADS Confirmed by LUIS RODRIGUEZ MD ([id number]) on 07/20/2017 5:13:07 PM Referred By: Confirmed By:LUIS RODRIGUEZ MD
[2017-07-20] MEDS: chlordiazePOXIDE HCL 25 MG CAPSULE PO SCH ×2 (17:55→22:26)
[2017-07-20] MEDS: THIAMINE HCL 100 MG TABLET (FP) PO SCH (22:26)
[2017-07-21] MEDS: chlordiazePOXIDE HCL 25 MG CAPSULE PO SCH ×2 (09:30→10:17)
--- NOTE | 2017-07-21 09:47 | PN ---
[facility] CIWA - CIWA Score Nausea/Vomitin-No Nausea/No Vomiting Muscle Tremors: 4-Moderate,w/Arms Extend Anxiety: 4-Mod. Anxious/Guarded Agitation: 4-Moderately Restless Paroxysmal Sweats: 1-Minimal Palms Moist Orientation: 0-Oriented Tacttile Disturbances: 0-None Auditory Disturbances: 0-None Visual Disturbances: 0-None Headache: 0-None Present CIWA-Ar Total Score: 13 [facility] Progress Note (SOAP) Subjective: sweat tremor anxiety restlessness Objective: 07/21/17 09:46 Vital Signs Temperature 98.1 F 07/21/17 06:17 Pulse Rate 62 07/21/17 07:42 Respiratory Rate 16 07/21/17 06:17 Blood Pressure 167/79 07/21/17 07:42 O2 Sat by Pulse Oximetry (%) Laboratory Last Values WBC 9.2 K/mm3 (4.0-10.0) D 07/20/17 08:00 RBC 4.12 M/mm3 (4.00-5.60) 07/20/17 08:00 Hgb 13.3 GM/dL (11.7-16.9) 07/20/17 08:00 Hct 40.7 % (35.4-49) 07/20/17 08:00 MCV 98.8 fl (80-96) H 07/20/17 08:00 MCH 32.2 pg (25.7-33.7) 07/20/17 08:00 MCHC 32.6 g/dl (32.0-35.9) 07/20/17 08:00 RDW 14.8 % (11.9-15.9) 07/20/17 08:00 Plt Count 179 K/MM3 (134-434) D 07/20/17 08:00 MPV 9.0 fl (7.5-11.1) 07/20/17 08:00 Sodium 143 mmol/L (136-145) 07/20/17 08:00 Potassium 3.8 mmol/L (3.5-5.1) 07/20/17 08:00 Chloride 108 mmol/L (98-107) H 07/20/17 08:00 Carbon Dioxide 25 mmol/L (21-32) 07/20/17 08:00 Anion Gap 10 (8-16) 07/20/17 08:00 BUN 17 mg/dL (7-18) D 07/20/17 08:00 Creatinine 0.8 mg/dL (0.7-1.3) D 07/20/17 08:00 Creat Clearance w eGFR > 60 (>60) 07/20/17 08:00 Random Glucose 80 mg/dL (74-106) 07/20/17 08:00 Calcium 8.2 mg/dL (8.5-10.1) L 07/20/17 08:00 Total Bilirubin 0.4 mg/dL (0.2-1.0) 07/20/17 08:00 AST 27 U/L (15-37) 07/20/17 08:00 ALT 30 U/L (12-78) 07/20/17 08:00 Alkaline Phosphatase 68 U/L (45-117) 07/20/17 08:00 Total Protein 5.7 g/dl (6.4-8.2) L 07/20/17 08:00 Albumin 2.7 g/dl (3.4-5.0) L 07/20/17 08:00 HIV 1&2 Antibody Screen Negative 07/20/17 08:24 HIV P24 Antigen Negative 07/20/17 08:24 lab noted Assessment: 07/21/17 09:46 withdrawal sx hypertension Plan: continue detox increase lisinopril from 5 to 10 mg po daily
[2017-07-21] MEDS: NICOTINE 14 MG/24 HOURS TOPICAL PATCH TD SCH (10:17)
[2017-07-21] MEDS: LISINOPRIL 10 MG TABLET (FP) PO SCH (10:17)
[2017-07-21] MEDS: SERTRALINE HCL 50 MG TABLET (FP) PO SCH (10:17)
[2017-07-21] MEDS: PRENATAL VITAMINS W/ FOLIC ACID TABLET (FP) PO SCH (10:17)
[2017-07-21] MEDS ORDERED: chlordiazePOXIDE HCL 25 MG CAPSULE PO SCH (11:00)
[2017-07-21] MEDS: chlordiazePOXIDE 5 MG CAPSULE PO SCH ×2 (17:22→22:33)
[2017-07-21] MEDS: THIAMINE HCL 100 MG TABLET (FP) PO SCH (22:33)
[2017-07-21] MEDS ORDERED: chlordiazePOXIDE 5 MG CAPSULE PO SCH (23:00)
[2017-07-22] MEDS: chlordiazePOXIDE 5 MG CAPSULE PO SCH ×2 (05:37→10:29)
[2017-07-22] MEDS: LISINOPRIL 10 MG TABLET (FP) PO SCH (10:29)
[2017-07-22] MEDS: PRENATAL VITAMINS W/ FOLIC ACID TABLET (FP) PO SCH (10:29)
[2017-07-22] MEDS: SERTRALINE HCL 50 MG TABLET (FP) PO SCH (10:29)
[2017-07-22] MEDS: NICOTINE 14 MG/24 HOURS TOPICAL PATCH TD SCH (10:30)
--- NOTE | 2017-07-22 10:32 | PN ---
S Progress Note (SOAP) Subjective: ALERT,IRRITABLE,ANXIOUS,INTERRUPTED SLEEP Objective: 07/22/17 10:30 Vital Signs Temperature 97.7 F 07/22/17 10:00 Pulse Rate 90 07/22/17 10:00 Respiratory Rate 16 07/22/17 10:00 Blood Pressure 149/88 07/22/17 10:00 O2 Sat by Pulse Oximetry (%) Assessment: 07/22/17 10:32 WITHDRAWAL SYMPTOM Plan: CONTINUE DETOX,DISCHARGE IN AM
[2017-07-22] MEDS ORDERED: chlordiazePOXIDE 5 MG CAPSULE PO SCH (11:00)
[2017-07-22 16:50] LABS: URINE APPEARANCE CLEAR; URINE BILIRUBIN NEGATIVE (NEGATIVE); URINE BLOOD NEGATIVE (NEGATIVE); URINE COLOR LTYELLOW; URINE GLUCOSE (UA) NEGATIVE (NEGATIVE); URINE KETONE NEGATIVE (NEGATIVE); URINE LEUK ESTERASE NEGATIVE (NEGATIVE); URINE NITRITE NEGATIVE (NEGATIVE); URINE PROTEIN NEGATIVE (NEGATIVE); URINE UROBILINOGEN NEGATIVE mg/dL (0.2-1.0)
[2017-07-22] MEDS: chlordiazePOXIDE HCL 10 MG CAPSULE PO SCH ×2 (17:34→22:30)
[2017-07-22] MEDS: THIAMINE HCL 100 MG TABLET (FP) PO SCH (22:30)
[2017-07-22] MEDS ORDERED: chlordiazePOXIDE HCL 10 MG CAPSULE PO SCH (23:00)
[2017-07-23] MEDS: chlordiazePOXIDE HCL 10 MG CAPSULE PO SCH ×2 (06:25→11:00)
[2017-07-23] MEDS: PRENATAL VITAMINS W/ FOLIC ACID TABLET (FP) PO SCH (10:50)
[2017-07-23] MEDS: NICOTINE 14 MG/24 HOURS TOPICAL PATCH TD SCH (10:50)
[2017-07-23] MEDS: LISINOPRIL 10 MG TABLET (FP) PO SCH (11:00)
[2017-07-23] MEDS ORDERED: chlordiazePOXIDE HCL 10 MG CAPSULE PO SCH (11:00)
[2017-07-23] MEDS: SERTRALINE HCL 50 MG TABLET (FP) PO SCH (11:00)
--- NOTE | 2017-07-23 11:26 | PN ---
[facility] Progress Note (SOAP) Subjective: sleep disturbance tremors Objective: 07/23/17 11:23 Alert Weak Vital Signs Temperature 97.0 F L 07/23/17 10:00 Pulse Rate 101 H 07/23/17 10:00 Respiratory Rate 18 07/23/17 10:00 Blood Pressure 150/98 07/23/17 10:00 O2 Sat by Pulse Oximetry (%) Assessment: 07/23/17 11:23 withdrawal sx weak, no acute distress 07/23/17 11:26 Plan: continue detox discharge for tomorrow re rehab placement
[2017-07-23] MEDS: THIAMINE HCL 100 MG TABLET (FP) PO SCH (23:27)
[2017-07-24] MEDS: PRENATAL VITAMINS W/ FOLIC ACID TABLET (FP) PO SCH (10:38)
[2017-07-24] MEDS: LISINOPRIL 10 MG TABLET (FP) PO SCH (10:38)
[2017-07-24] MEDS: NICOTINE 14 MG/24 HOURS TOPICAL PATCH TD SCH (10:38)
[2017-07-24] MEDS: SERTRALINE HCL 50 MG TABLET (FP) PO SCH (10:38)
--- NOTE | 2017-07-24 11:09 | PN ---
S Progress Note (SOAP) Subjective: alert oriented x 3 attend community meeting social with peers Objective: 07/24/17 11:06 Vital Signs Temperature 97.5 F L 07/24/17 10:00 Pulse Rate 86 07/24/17 10:00 Respiratory Rate 20 07/24/17 10:00 Blood Pressure 150/89 07/24/17 10:00 O2 Sat by Pulse Oximetry (%) Laboratory Last Values WBC 9.2 K/mm3 (4.0-10.0) D 07/20/17 08:00 RBC 4.12 M/mm3 (4.00-5.60) 07/20/17 08:00 Hgb 13.3 GM/dL (11.7-16.9) 07/20/17 08:00 Hct 40.7 % (35.4-49) 07/20/17 08:00 MCV 98.8 fl (80-96) H 07/20/17 08:00 MCH 32.2 pg (25.7-33.7) 07/20/17 08:00 MCHC 32.6 g/dl (32.0-35.9) 07/20/17 08:00 RDW 14.8 % (11.9-15.9) 07/20/17 08:00 Plt Count 179 K/MM3 (134-434) D 07/20/17 08:00 MPV 9.0 fl (7.5-11.1) 07/20/17 08:00 Sodium 143 mmol/L (136-145) 07/20/17 08:00 Potassium 3.8 mmol/L (3.5-5.1) 07/20/17 08:00 Chloride 108 mmol/L (98-107) H 07/20/17 08:00 Carbon Dioxide 25 mmol/L (21-32) 07/20/17 08:00 Anion Gap 10 (8-16) 07/20/17 08:00 BUN 17 mg/dL (7-18) D 07/20/17 08:00 Creatinine 0.8 mg/dL (0.7-1.3) D 07/20/17 08:00 Creat Clearance w eGFR > 60 (>60) 07/20/17 08:00 Random Glucose 80 mg/dL (74-106) 07/20/17 08:00 Calcium 8.2 mg/dL (8.5-10.1) L 07/20/17 08:00 Total Bilirubin 0.4 mg/dL (0.2-1.0) 07/20/17 08:00 AST 27 U/L (15-37) 07/20/17 08:00 ALT 30 U/L (12-78) 07/20/17 08:00 Alkaline Phosphatase 68 U/L (45-117) 07/20/17 08:00 Total Protein 5.7 g/dl (6.4-8.2) L 07/20/17 08:00 Albumin 2.7 g/dl (3.4-5.0) L 07/20/17 08:00 Urine Color Ltyellow 07/22/17 12:30 Urine Appearance Clear 07/22/17 12:30 Urine pH 6.0 (5.0-8.0) 07/22/17 12:30 Ur Specific [place] 1.012 (1.001-1.035) 07/22/17 12:30 Urine Protein Negative (NEGATIVE) 07/22/17 12:30 Urine Glucose (UA) Negative (NEGATIVE) 07/22/17 12:30 Urine Ketones Negative (NEGATIVE) 07/22/17 12:30 Urine Blood Negative (NEGATIVE) 07/22/17 12:30 Urine Nitrite Negative (NEGATIVE) 07/22/17 12:30 Urine Bilirubin Negative (NEGATIVE) 07/22/17 12:30 Urine Urobilinogen Negative mg/dL (0.2-1.0) 07/22/17 12:30 Ur Leukocyte Esterase Negative (NEGATIVE) 07/22/17 12:30 RPR Titer Nonreactive (NONREACTIVE) 07/20/17 08:00 HIV 1&2 Antibody Screen Negative 07/20/17 08:24 HIV P24 Antigen Negative 07/20/17 08:24 lab noted Assessment: 07/24/17 11:07 mild withdrawal sx 07/24/17 11:08 hypertension Plan: medically supervised detox add amlodipine 5 mg po daily
[2017-07-24] MEDS: amLODIPine BESYLATE 5 MG TABLET (FP) PO SCH (12:08)
[2017-07-24] MEDS: THIAMINE HCL 100 MG TABLET (FP) PO SCH (23:51)
--- NOTE | 2017-07-25 10:21 | DS ---
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 - Physical Exam Results Vital Signs: Vital Signs Temperature 96.9 F L 07/25/17 06:05 Pulse Rate 74 07/25/17 06:05 Respiratory Rate 18 07/25/17 06:05 Blood Pressure 118/77 07/25/17 06:05 O2 Sat by Pulse Oximetry (%) Pertinent Admission Physical Exam Findings: WITHDRAWAL SIGNS AND SYMPTOM - Treatment Hospital Course: Detox Protocol Followed, Detoxed Safely, Responded well, Discharged Condition Good, Rehab Referral Accepted Patient has Accepted a Rehab Referral to: [facility] - Medication Discharge Medications: Ambulatory Orders Dextroamphetamine/Amphetamine [Adderall 10 mg Tablet] 10 mg PO TID 07/19/17 Sertraline HCl [Zoloft -] 100 mg PO DAILY 07/19/17 Sertraline HCl [Zoloft -] 100 mg PO DAILY #30 tablet 07/20/17 Lisinopril [Prinivil] 10 mg PO DAILY #30 tablet 07/24/17 - Diagnosis (1) Alcohol dependence with uncomplicated withdrawal Current Visit: No Status: Acute (2) Cocaine dependence Current Visit: No Status: Acute (3) HTN (hypertension) Current Visit: No Status: Chronic Qualifiers: Hypertension type: essential hypertension Qualified Code(s): I10 - Essential (primary) hypertension (4) Nicotine dependence Current Visit: No Status: Chronic Qualifiers: Nicotine product type: cigarettes Substance use status: in withdrawal Qualified Code(s): F17.213 - Nicotine dependence, cigarettes, with withdrawal (5) Hepatitis C Current Visit: Yes Status: Acute (6) Arthritis Current Visit: No Status: Chronic (7) History of benign tumor of bronchus and lung Current Visit: Yes Status: Acute (8) Ambulates with cane Current Visit: Yes Status: Acute (9) Weight loss Current Visit: Yes Status: Acute (10) Substance induced mood disorder Current Visit: No Status: Acute (11) Substance-induced sleep disorder Current Visit: No Status: Acute - AMA Did Patient Leave Against Medical Advice: No
[2017-07-25] MEDS: PRENATAL VITAMINS W/ FOLIC ACID TABLET (FP) PO SCH (10:57)
[2017-07-25] MEDS: amLODIPine BESYLATE 5 MG TABLET (FP) PO SCH (10:57)
[2017-07-25] MEDS: LISINOPRIL 10 MG TABLET (FP) PO SCH (10:57)
[2017-07-25] MEDS: SERTRALINE HCL 50 MG TABLET (FP) PO SCH (10:57)
[2017-07-25] MEDS: NICOTINE 14 MG/24 HOURS TOPICAL PATCH TD SCH (10:57)
[2017-07-25] MEDS: THIAMINE HCL 100 MG TABLET (FP) PO SCH (21:21)
[2017-07-26] MEDS: SERTRALINE HCL 50 MG TABLET (FP) PO SCH (10:04)
[2017-07-26] MEDS: LISINOPRIL 10 MG TABLET (FP) PO SCH (10:05)
[2017-07-26] MEDS: NICOTINE 14 MG/24 HOURS TOPICAL PATCH TD SCH (10:05)
[2017-07-26] MEDS: amLODIPine BESYLATE 5 MG TABLET (FP) PO SCH (10:05)
[2017-07-26] MEDS: PRENATAL VITAMINS W/ FOLIC ACID TABLET (FP) PO SCH (10:05)
[2017-07-26] MEDS ORDERED: ONDANSETRON *ODT* 4 MG TABLET SL PRN (13:15)
--- NOTE | 2017-07-26 13:20 | HP ---
[facility] Re[facility] Assess/Revision - Admission History Admitted to Rehab from: [facility] Date of Admission to Rehab: 07/25/2017 - Vital signs Vital Signs: Vital Signs Period Temp Pulse Resp BP Sys/Brian Pulse Ox Last 24 Hr 97.3 F-97.5 F 71-81 16-18 121-152/73-93 - Findings Detox History & Physical reviewed: Yes Concur with findings: Yes Inpatient Rehab Admission - Initial Determination Are CD services needed?: Yes Free of communicable disease: Yes Not in need of hospitalization: Yes - Rehab Admission Criteria Comorbidities: Yes Patient is meeting Inpatient Rehab admission criteria:: Yes
--- NOTE | 2017-07-26 13:25 | PN ---
[facility] Progress Note (SOAP) Subjective: c/o nause and voiting since he was in detox, would like ensure, has not had anything for his symptoms Objective: 07/26/17 13:23 Vital Signs - 24 hr 07/25/17 07/26/17 07/26/17 13:27 00:30 03:30 Temperature 97.5 F L Pulse Rate 81 Respiratory 16 18 16 Rate Blood Pressure 152/88 07/26/17 07/26/17 07:01 10:00 Temperature 97.3 F L Pulse Rate 71 81 Respiratory 16 18 Rate Blood Pressure 140/93 121/73 Laboratory Tests 07/20/17 07/20/17 07/20/17 08:00 08:00 08:00 WBC 9.2 D RBC 4.12 Hgb 13.3 Hct 40.7 MCV 98.8 H MCH 32.2 MCHC 32.6 RDW 14.8 Plt Count 179 D MPV 9.0 Sodium 143 Potassium 3.8 Chloride 108 H Carbon Dioxide 25 Anion Gap 10 BUN 17 D Creatinine 0.8 D Creat Clearance w eGFR > 60 Random Glucose 80 Calcium 8.2 L Total Bilirubin 0.4 AST 27 ALT 30 Alkaline Phosphatase 68 Total Protein 5.7 L Albumin 2.7 L Urine Color Urine Appearance Urine pH Ur Specific [place] Urine Protein Urine Glucose (UA) Urine Ketones Urine Blood Urine Nitrite Urine Bilirubin Urine Urobilinogen Ur Leukocyte Esterase RPR Titer Nonreactive HIV 1&2 Antibody Screen HIV P24 Antigen 07/20/17 07/22/17 08:24 12:30 WBC RBC Hgb Hct MCV MCH MCHC RDW Plt Count MPV Sodium Potassium Chloride Carbon Dioxide Anion Gap BUN Creatinine Creat Clearance w eGFR Random Glucose Calcium Total Bilirubin AST ALT Alkaline Phosphatase Total Protein Albumin Urine Color Ltyellow Urine Appearance Clear Urine pH 6.0 Ur Specific [place] 1.012 Urine Protein Negative Urine Glucose (UA) Negative Urine Ketones Negative Urine Blood Negative Urine Nitrite Negative Urine Bilirubin Negative Urine Urobilinogen Negative Ur Leukocyte Esterase Negative RPR Titer HIV 1&2 Antibody Screen Negative HIV P24 Antigen Negative lo0w ablumine, thin , NAD and ao x3 Assessment: 07/26/17 13:23 malnourished - start ensure 120ml po bid with meals, nausea and vomiting, most likely 2/2 continued alcohol withdrwawl, zofran x1 dose for nausea and then prn , start protonix.
[2017-07-26] MEDS ORDERED: ONDANSETRON *ODT* 4 MG TABLET SL ONE (14:00)
[2017-07-26] MEDS: PANTOPRAZOLE 40 MG TABLET (FP) PO SCH (14:43)
--- NOTE | 2017-07-26 15:58 | HP ---
Psychiatrist Admission - Data Date of interview: 07/26/17 Admission source: 6N Identifying data: This is the first 5[facility]in[facility] rehabilitation admission for this 77 year old single AA male, father of 4, currently and homeless. 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 He smokes cigarettes 1 PPD. Psychiatric History: Patient reports he was diagnosed with deperssion, first psychiatric contact in 2019 while in 28 days Rehabilitation treatment program in [place], [place], was started Zolof, after completion of treatment was on and off medications, seen by and continued Zoloft 100 mg po daily. Reports no history of psychiatric hospitalizations. Physical/Sexual Abuse/Trauma History: Denies history of sexual, physical and verbal abuse. Vital Signs: Vital Signs - 24 hr 07/26/17 07/26/17 07/26/17 00:30 03:30 07:01 Temperature 97.3 F L Pulse Rate 71 Respiratory 18 16 16 Rate Blood Pressure 140/93 07/26/17 10:00 Temperature Pulse Rate 81 Respiratory 18 Rate Blood Pressure 121/73 Allergies/Adverse Reactions: Allergies Allergy/AdvReac Type Severity Reaction Status Date / Time No Known Allergies Allergy Verified 07/25/17 15:28 Date of last physical exam: 07/19/17 Concur with the findings of this exam: Yes - Substance Abuse/Tx History Hx Alcohol Use: Yes Hx Substance Use: Yes Substance Use Type: Alcohol (beer 2-3 times a week), Cocaine (crack smokes daily for $100) Hx Substance Use Treatment: Yes ([facility] x 2) Mental Status Exam - Mental Status Exam Alert and Oriented to: Time, Place, Person Cognitive Function: Grossly Intact Patient Appearance: Unkempt Mood: Sad Affect: Mood Congruent Patient Behavior: Cooperative Speech Pattern: Clear, Appropriate Voice Loudness: Normal Thought Process: Goal Oriented Thought Disorder: Not Present Hallucinations: Denies Suicidal Ideation: Denies Homicidal Ideation: Denies Insight/Judgement: Fair Sleep: Fair Appetite: Fair Muscle strength/Tone: Normal Gait/Station: Other (ambulated with cane) Psychiatric Findings - Problem List (Riley 1, 2,3) (1) Ambulates with cane Current Visit: Yes Status: Acute (2) Hepatitis C Current Visit: Yes Status: Acute (3) Alcohol dependence Current Visit: No Status: Acute (4) Cocaine dependence Current Visit: No Status: Acute (5) Substance induced mood disorder Current Visit: No Status: Acute (6) Nicotine dependence Current Visit: No Status: Chronic Qualifiers: Nicotine product type: cigarettes Substance use status: in withdrawal Qualified Code(s): F17.213 - Nicotine dependence, cigarettes, with withdrawal - Initial Treatment Plan Initial Treatment Plan: continue Zoloft, monitor progress.
[2017-07-26] MEDS: THIAMINE HCL 100 MG TABLET (FP) PO SCH (21:24)
[2017-07-27] MEDS: PRENATAL VITAMINS W/ FOLIC ACID TABLET (FP) PO SCH (10:15)
[2017-07-27] MEDS: amLODIPine BESYLATE 10 MG TABLET (FP) PO SCH (10:15)
[2017-07-27] MEDS: SERTRALINE HCL 50 MG TABLET (FP) PO SCH (10:15)
[2017-07-27] MEDS: NICOTINE 14 MG/24 HOURS TOPICAL PATCH TD SCH (10:16)
[2017-07-27] MEDS: LISINOPRIL 10 MG TABLET (FP) PO SCH (10:16)
[2017-07-27] MEDS: PANTOPRAZOLE 40 MG TABLET (FP) PO SCH (10:17)
--- NOTE | 2017-07-27 10:42 | PN ---
[facility] Progress Note Note: patient c/o insomnia, will add Benadryl 25 mg po hs
[2017-07-27] MEDS: THIAMINE HCL 100 MG TABLET (FP) PO SCH (21:06)
[2017-07-27] MEDS: diphenhydrAMINE HCL 25 MG CAPSULE (FP) PO PRN (21:07)
[2017-07-28] MEDS: NICOTINE 14 MG/24 HOURS TOPICAL PATCH TD SCH (10:17)
[2017-07-28] MEDS: LISINOPRIL 10 MG TABLET (FP) PO SCH (10:18)
[2017-07-28] MEDS: SERTRALINE HCL 50 MG TABLET (FP) PO SCH (10:18)
[2017-07-28] MEDS: amLODIPine BESYLATE 10 MG TABLET (FP) PO SCH (10:18)
[2017-07-28] MEDS: PANTOPRAZOLE 40 MG TABLET (FP) PO SCH (10:18)
[2017-07-28] MEDS: PRENATAL VITAMINS W/ FOLIC ACID TABLET (FP) PO SCH (10:18)
[2017-07-28] MEDS: THIAMINE HCL 100 MG TABLET (FP) PO SCH (21:24)
[2017-07-28] MEDS: diphenhydrAMINE HCL 25 MG CAPSULE (FP) PO PRN (21:25)
[2017-07-29] MEDS: amLODIPine BESYLATE 10 MG TABLET (FP) PO SCH (10:09)
[2017-07-29] MEDS: LISINOPRIL 10 MG TABLET (FP) PO SCH (10:09)
[2017-07-29] MEDS: SERTRALINE HCL 50 MG TABLET (FP) PO SCH (10:09)
[2017-07-29] MEDS: NICOTINE 14 MG/24 HOURS TOPICAL PATCH TD SCH (10:10)
[2017-07-29] MEDS: PRENATAL VITAMINS W/ FOLIC ACID TABLET (FP) PO SCH (10:10)
[2017-07-29] MEDS: PANTOPRAZOLE 40 MG TABLET (FP) PO SCH (10:11)
[2017-07-29] MEDS: diphenhydrAMINE HCL 25 MG CAPSULE (FP) PO PRN (21:35)
[2017-07-29] MEDS: THIAMINE HCL 100 MG TABLET (FP) PO SCH (21:35)
[2017-07-30] MEDS: PANTOPRAZOLE 40 MG TABLET (FP) PO SCH (10:09)
[2017-07-30] MEDS: LISINOPRIL 10 MG TABLET (FP) PO SCH (10:09)
[2017-07-30] MEDS: PRENATAL VITAMINS W/ FOLIC ACID TABLET (FP) PO SCH (10:09)
[2017-07-30] MEDS: amLODIPine BESYLATE 10 MG TABLET (FP) PO SCH (10:09)
[2017-07-30] MEDS: NICOTINE 14 MG/24 HOURS TOPICAL PATCH TD SCH (10:10)
[2017-07-30] MEDS: SERTRALINE HCL 50 MG TABLET (FP) PO SCH (10:10)
[2017-07-30] MEDS: THIAMINE HCL 100 MG TABLET (FP) PO SCH (21:23)
[2017-07-30] MEDS: diphenhydrAMINE HCL 25 MG CAPSULE (FP) PO PRN (21:24)
[2017-07-31] MEDS: LISINOPRIL 10 MG TABLET (FP) PO SCH (10:34)
[2017-07-31] MEDS: amLODIPine BESYLATE 10 MG TABLET (FP) PO SCH (10:34)
[2017-07-31] MEDS: NICOTINE 14 MG/24 HOURS TOPICAL PATCH TD SCH (10:34)
[2017-07-31] MEDS: PANTOPRAZOLE 40 MG TABLET (FP) PO SCH (10:34)
[2017-07-31] MEDS: PRENATAL VITAMINS W/ FOLIC ACID TABLET (FP) PO SCH (10:34)
[2017-07-31] MEDS: SERTRALINE HCL 50 MG TABLET (FP) PO SCH (10:34)
[2017-07-31] MEDS: diphenhydrAMINE HCL 25 MG CAPSULE (FP) PO PRN (21:26)
[2017-07-31] MEDS: THIAMINE HCL 100 MG TABLET (FP) PO SCH (21:26)
[2017-08-01] MEDS: SERTRALINE HCL 50 MG TABLET (FP) PO SCH (10:15)
[2017-08-01] MEDS: PRENATAL VITAMINS W/ FOLIC ACID TABLET (FP) PO SCH (10:15)
[2017-08-01] MEDS: amLODIPine BESYLATE 10 MG TABLET (FP) PO SCH (10:15)
[2017-08-01] MEDS: LISINOPRIL 10 MG TABLET (FP) PO SCH (10:15)
[2017-08-01] MEDS: NICOTINE 14 MG/24 HOURS TOPICAL PATCH TD SCH (10:16)
[2017-08-01] MEDS: PANTOPRAZOLE 40 MG TABLET (FP) PO SCH (10:16)
[2017-08-01] MEDS: THIAMINE HCL 100 MG TABLET (FP) PO SCH (21:25)
[2017-08-01] MEDS: diphenhydrAMINE HCL 25 MG CAPSULE (FP) PO PRN (21:25)
[2017-08-02] MEDS: PRENATAL VITAMINS W/ FOLIC ACID TABLET (FP) PO SCH (10:16)
[2017-08-02] MEDS: PANTOPRAZOLE 40 MG TABLET (FP) PO SCH (10:16)
[2017-08-02] MEDS: LISINOPRIL 10 MG TABLET (FP) PO SCH (10:16)
[2017-08-02] MEDS: NICOTINE 14 MG/24 HOURS TOPICAL PATCH TD SCH (10:16)
[2017-08-02] MEDS: SERTRALINE HCL 50 MG TABLET (FP) PO SCH (10:16)
[2017-08-02] MEDS: amLODIPine BESYLATE 10 MG TABLET (FP) PO SCH (10:16)
[2017-08-02] MEDS: diphenhydrAMINE HCL 25 MG CAPSULE (FP) PO PRN (21:27)
[2017-08-02] MEDS: THIAMINE HCL 100 MG TABLET (FP) PO SCH (21:27)
[2017-08-03] MEDS: SERTRALINE HCL 50 MG TABLET (FP) PO SCH (10:29)
[2017-08-03] MEDS: LISINOPRIL 10 MG TABLET (FP) PO SCH (10:29)
[2017-08-03] MEDS: PANTOPRAZOLE 40 MG TABLET (FP) PO SCH (10:29)
[2017-08-03] MEDS: amLODIPine BESYLATE 10 MG TABLET (FP) PO SCH (10:29)
[2017-08-03] MEDS: NICOTINE 14 MG/24 HOURS TOPICAL PATCH TD SCH (10:30)
[2017-08-03] MEDS: PRENATAL VITAMINS W/ FOLIC ACID TABLET (FP) PO SCH (10:30)
[2017-08-03] MEDS: diphenhydrAMINE HCL 25 MG CAPSULE (FP) PO PRN (21:24)
[2017-08-03] MEDS: THIAMINE HCL 100 MG TABLET (FP) PO SCH (21:24)
[2017-08-04] MEDS: LISINOPRIL 10 MG TABLET (FP) PO SCH (10:26)
[2017-08-04] MEDS: SERTRALINE HCL 50 MG TABLET (FP) PO SCH (10:26)
[2017-08-04] MEDS: amLODIPine BESYLATE 10 MG TABLET (FP) PO SCH (10:27)
[2017-08-04] MEDS: PRENATAL VITAMINS W/ FOLIC ACID TABLET (FP) PO SCH (10:27)
[2017-08-04] MEDS: PANTOPRAZOLE 40 MG TABLET (FP) PO SCH (10:27)
[2017-08-04] MEDS: NICOTINE 14 MG/24 HOURS TOPICAL PATCH TD SCH (10:27)
[2017-08-04] MEDS: THIAMINE HCL 100 MG TABLET (FP) PO SCH (21:26)
[2017-08-04] MEDS: diphenhydrAMINE HCL 25 MG CAPSULE (FP) PO PRN (21:26)
[2017-08-05] MEDS: PANTOPRAZOLE 40 MG TABLET (FP) PO SCH (10:20)
[2017-08-05] MEDS: SERTRALINE HCL 50 MG TABLET (FP) PO SCH (10:20)
[2017-08-05] MEDS: LISINOPRIL 10 MG TABLET (FP) PO SCH (10:20)
[2017-08-05] MEDS: NICOTINE 14 MG/24 HOURS TOPICAL PATCH TD SCH (10:20)
[2017-08-05] MEDS: amLODIPine BESYLATE 10 MG TABLET (FP) PO SCH (10:20)
[2017-08-05] MEDS: PRENATAL VITAMINS W/ FOLIC ACID TABLET (FP) PO SCH (10:20)
[2017-08-05] MEDS: THIAMINE HCL 100 MG TABLET (FP) PO SCH (21:23)
[2017-08-05] MEDS: diphenhydrAMINE HCL 25 MG CAPSULE (FP) PO PRN (21:23)
[2017-08-06] MEDS: PANTOPRAZOLE 40 MG TABLET (FP) PO SCH (09:54)
[2017-08-06] MEDS: SERTRALINE HCL 50 MG TABLET (FP) PO SCH (09:54)
[2017-08-06] MEDS: NICOTINE 14 MG/24 HOURS TOPICAL PATCH TD SCH (09:54)
[2017-08-06] MEDS: PRENATAL VITAMINS W/ FOLIC ACID TABLET (FP) PO SCH (09:54)
[2017-08-06] MEDS: LISINOPRIL 10 MG TABLET (FP) PO SCH (09:54)
[2017-08-06] MEDS: amLODIPine BESYLATE 10 MG TABLET (FP) PO SCH (09:54)
[2017-08-06] MEDS: THIAMINE HCL 100 MG TABLET (FP) PO SCH (21:24)
[2017-08-06] MEDS: diphenhydrAMINE HCL 25 MG CAPSULE (FP) PO PRN (21:24)
[2017-08-07] MEDS: amLODIPine BESYLATE 10 MG TABLET (FP) PO SCH (09:54)
[2017-08-07] MEDS: SERTRALINE HCL 50 MG TABLET (FP) PO SCH (09:54)
[2017-08-07] MEDS: PANTOPRAZOLE 40 MG TABLET (FP) PO SCH (09:54)
[2017-08-07] MEDS: LISINOPRIL 10 MG TABLET (FP) PO SCH (09:54)
[2017-08-07] MEDS: NICOTINE 14 MG/24 HOURS TOPICAL PATCH TD SCH (09:54)
[2017-08-07] MEDS: PRENATAL VITAMINS W/ FOLIC ACID TABLET (FP) PO SCH (09:54)
[2017-08-07] MEDS: THIAMINE HCL 100 MG TABLET (FP) PO SCH (21:24)
[2017-08-07] MEDS: diphenhydrAMINE HCL 25 MG CAPSULE (FP) PO PRN (21:24)
[2017-08-08] MEDS: amLODIPine BESYLATE 10 MG TABLET (FP) PO SCH (10:16)
[2017-08-08] MEDS: PRENATAL VITAMINS W/ FOLIC ACID TABLET (FP) PO SCH (10:16)
[2017-08-08] MEDS: PANTOPRAZOLE 40 MG TABLET (FP) PO SCH (10:16)
[2017-08-08] MEDS: SERTRALINE HCL 50 MG TABLET (FP) PO SCH (10:16)
[2017-08-08] MEDS: NICOTINE 14 MG/24 HOURS TOPICAL PATCH TD SCH (10:17)
[2017-08-08] MEDS: LISINOPRIL 10 MG TABLET (FP) PO SCH (10:17)
[2017-08-08] MEDS: THIAMINE HCL 100 MG TABLET (FP) PO SCH (21:21)
[2017-08-08] MEDS: diphenhydrAMINE HCL 25 MG CAPSULE (FP) PO PRN (21:21)
[2017-08-09] MEDS: NICOTINE 14 MG/24 HOURS TOPICAL PATCH TD SCH (10:03)
[2017-08-09] MEDS: SERTRALINE HCL 50 MG TABLET (FP) PO SCH (10:03)
[2017-08-09] MEDS: LISINOPRIL 10 MG TABLET (FP) PO SCH (10:03)
[2017-08-09] MEDS: amLODIPine BESYLATE 10 MG TABLET (FP) PO SCH (10:03)
[2017-08-09] MEDS: PANTOPRAZOLE 40 MG TABLET (FP) PO SCH (10:04)
[2017-08-09] MEDS: PRENATAL VITAMINS W/ FOLIC ACID TABLET (FP) PO SCH (10:04)
[2017-08-09] MEDS: THIAMINE HCL 100 MG TABLET (FP) PO SCH (21:23)
[2017-08-09] MEDS: diphenhydrAMINE HCL 25 MG CAPSULE (FP) PO PRN (21:23)
[2017-08-10] MEDS: SERTRALINE HCL 50 MG TABLET (FP) PO SCH (10:04)
[2017-08-10] MEDS: LISINOPRIL 10 MG TABLET (FP) PO SCH (10:04)
[2017-08-10] MEDS: PANTOPRAZOLE 40 MG TABLET (FP) PO SCH (10:04)
[2017-08-10] MEDS: amLODIPine BESYLATE 10 MG TABLET (FP) PO SCH (10:04)
[2017-08-10] MEDS: PRENATAL VITAMINS W/ FOLIC ACID TABLET (FP) PO SCH (10:04)
[2017-08-10] MEDS: NICOTINE 14 MG/24 HOURS TOPICAL PATCH TD SCH (10:05)
[2017-08-10] MEDS: diphenhydrAMINE HCL 25 MG CAPSULE (FP) PO PRN (21:21)
[2017-08-10] MEDS: THIAMINE HCL 100 MG TABLET (FP) PO SCH (21:21)
[2017-08-11] MEDS: SERTRALINE HCL 50 MG TABLET (FP) PO SCH (10:36)
[2017-08-11] MEDS: PANTOPRAZOLE 40 MG TABLET (FP) PO SCH (10:36)
[2017-08-11] MEDS: NICOTINE 14 MG/24 HOURS TOPICAL PATCH TD SCH (10:37)
[2017-08-11] MEDS: PRENATAL VITAMINS W/ FOLIC ACID TABLET (FP) PO SCH (10:37)
[2017-08-11] MEDS: LISINOPRIL 10 MG TABLET (FP) PO SCH (10:37)
[2017-08-11] MEDS: amLODIPine BESYLATE 10 MG TABLET (FP) PO SCH (10:40)
[2017-08-11] MEDS: diphenhydrAMINE HCL 25 MG CAPSULE (FP) PO PRN (21:30)
[2017-08-11] MEDS: THIAMINE HCL 100 MG TABLET (FP) PO SCH (21:30)
[2017-08-12] MEDS: LISINOPRIL 10 MG TABLET (FP) PO SCH (10:08)
[2017-08-12] MEDS: PRENATAL VITAMINS W/ FOLIC ACID TABLET (FP) PO SCH (10:08)
[2017-08-12] MEDS: PANTOPRAZOLE 40 MG TABLET (FP) PO SCH (10:09)
[2017-08-12] MEDS: SERTRALINE HCL 50 MG TABLET (FP) PO SCH (10:09)
[2017-08-12] MEDS: amLODIPine BESYLATE 10 MG TABLET (FP) PO SCH (10:09)
[2017-08-12] MEDS: NICOTINE 14 MG/24 HOURS TOPICAL PATCH TD SCH (10:10)
[2017-08-12] MEDS: THIAMINE HCL 100 MG TABLET (FP) PO SCH (21:29)
[2017-08-12] MEDS: diphenhydrAMINE HCL 25 MG CAPSULE (FP) PO PRN (21:29)
[2017-08-13] MEDS: amLODIPine BESYLATE 10 MG TABLET (FP) PO SCH (10:05)
[2017-08-13] MEDS: SERTRALINE HCL 50 MG TABLET (FP) PO SCH (10:05)
[2017-08-13] MEDS: PRENATAL VITAMINS W/ FOLIC ACID TABLET (FP) PO SCH (10:05)
[2017-08-13] MEDS: LISINOPRIL 10 MG TABLET (FP) PO SCH (10:05)
[2017-08-13] MEDS: PANTOPRAZOLE 40 MG TABLET (FP) PO SCH (10:06)
[2017-08-13] MEDS: NICOTINE 14 MG/24 HOURS TOPICAL PATCH TD SCH (10:07)
[2017-08-13] MEDS: THIAMINE HCL 100 MG TABLET (FP) PO SCH (21:33)
[2017-08-13] MEDS: diphenhydrAMINE HCL 25 MG CAPSULE (FP) PO PRN (21:34)
[2017-08-14] MEDS: LISINOPRIL 10 MG TABLET (FP) PO SCH (10:18)
[2017-08-14] MEDS: SERTRALINE HCL 50 MG TABLET (FP) PO SCH (10:18)
[2017-08-14] MEDS: amLODIPine BESYLATE 10 MG TABLET (FP) PO SCH (10:18)
[2017-08-14] MEDS: PRENATAL VITAMINS W/ FOLIC ACID TABLET (FP) PO SCH (10:18)
[2017-08-14] MEDS: PANTOPRAZOLE 40 MG TABLET (FP) PO SCH (10:18)
[2017-08-14] MEDS: NICOTINE 14 MG/24 HOURS TOPICAL PATCH TD SCH (10:23)
[2017-08-14] MEDS: diphenhydrAMINE HCL 25 MG CAPSULE (FP) PO PRN (21:33)
[2017-08-14] MEDS: THIAMINE HCL 100 MG TABLET (FP) PO SCH (21:33)
[2017-08-15] MEDS: PRENATAL VITAMINS W/ FOLIC ACID TABLET (FP) PO SCH (10:11)
[2017-08-15] MEDS: LISINOPRIL 10 MG TABLET (FP) PO SCH (10:11)
[2017-08-15] MEDS: amLODIPine BESYLATE 10 MG TABLET (FP) PO SCH (10:12)
[2017-08-15] MEDS: NICOTINE 14 MG/24 HOURS TOPICAL PATCH TD SCH (10:12)
[2017-08-15] MEDS: PANTOPRAZOLE 40 MG TABLET (FP) PO SCH (10:12)
[2017-08-15] MEDS: SERTRALINE HCL 50 MG TABLET (FP) PO SCH (10:12)
[2017-08-15] MEDS: diphenhydrAMINE HCL 25 MG CAPSULE (FP) PO PRN (21:43)
[2017-08-15] MEDS: THIAMINE HCL 100 MG TABLET (FP) PO SCH (21:43)
[2017-08-16] MEDS: LISINOPRIL 10 MG TABLET (FP) PO SCH (10:15)
[2017-08-16] MEDS: PRENATAL VITAMINS W/ FOLIC ACID TABLET (FP) PO SCH (10:15)
[2017-08-16] MEDS: PANTOPRAZOLE 40 MG TABLET (FP) PO SCH (10:15)
[2017-08-16] MEDS: NICOTINE 14 MG/24 HOURS TOPICAL PATCH TD SCH (10:16)
[2017-08-16] MEDS: amLODIPine BESYLATE 10 MG TABLET (FP) PO SCH (10:16)
[2017-08-16] MEDS: SERTRALINE HCL 50 MG TABLET (FP) PO SCH (10:16)
[2017-08-16] MEDS: diphenhydrAMINE HCL 25 MG CAPSULE (FP) PO PRN (21:29)
[2017-08-16] MEDS: THIAMINE HCL 100 MG TABLET (FP) PO SCH (21:29)
[2017-08-17] MEDS: PRENATAL VITAMINS W/ FOLIC ACID TABLET (FP) PO SCH (10:21)
[2017-08-17] MEDS: SERTRALINE HCL 50 MG TABLET (FP) PO SCH (10:21)
[2017-08-17] MEDS: amLODIPine BESYLATE 10 MG TABLET (FP) PO SCH (10:21)
[2017-08-17] MEDS: PANTOPRAZOLE 40 MG TABLET (FP) PO SCH (10:21)
[2017-08-17] MEDS: LISINOPRIL 10 MG TABLET (FP) PO SCH (10:21)
[2017-08-17] MEDS: NICOTINE 14 MG/24 HOURS TOPICAL PATCH TD SCH (10:22)
[2017-08-17] MEDS: diphenhydrAMINE HCL 25 MG CAPSULE (FP) PO PRN (21:30)
[2017-08-17] MEDS: THIAMINE HCL 100 MG TABLET (FP) PO SCH (21:30)
[2017-08-18] MEDS: SERTRALINE HCL 50 MG TABLET (FP) PO SCH (10:49)
[2017-08-18] MEDS: amLODIPine BESYLATE 10 MG TABLET (FP) PO SCH (10:49)
[2017-08-18] MEDS: PRENATAL VITAMINS W/ FOLIC ACID TABLET (FP) PO SCH (10:49)
[2017-08-18] MEDS: PANTOPRAZOLE 40 MG TABLET (FP) PO SCH (10:49)
[2017-08-18] MEDS: LISINOPRIL 10 MG TABLET (FP) PO SCH (10:49)
[2017-08-18] MEDS: NICOTINE 14 MG/24 HOURS TOPICAL PATCH TD SCH (10:49)
[2017-08-18] MEDS: THIAMINE HCL 100 MG TABLET (FP) PO SCH (21:20)
[2017-08-18] MEDS: diphenhydrAMINE HCL 25 MG CAPSULE (FP) PO PRN (21:20)
[2017-08-19] MEDS: amLODIPine BESYLATE 10 MG TABLET (FP) PO SCH (10:11)
[2017-08-19] MEDS: PRENATAL VITAMINS W/ FOLIC ACID TABLET (FP) PO SCH (10:11)
[2017-08-19] MEDS: SERTRALINE HCL 50 MG TABLET (FP) PO SCH (10:11)
[2017-08-19] MEDS: PANTOPRAZOLE 40 MG TABLET (FP) PO SCH (10:11)
[2017-08-19] MEDS: NICOTINE 14 MG/24 HOURS TOPICAL PATCH TD SCH (10:11)
[2017-08-19] MEDS: LISINOPRIL 10 MG TABLET (FP) PO SCH (10:11)
[2017-08-19] MEDS: diphenhydrAMINE HCL 25 MG CAPSULE (FP) PO PRN (21:25)
[2017-08-19] MEDS: THIAMINE HCL 100 MG TABLET (FP) PO SCH (21:25)
[2017-08-20] MEDS: SERTRALINE HCL 50 MG TABLET (FP) PO SCH (10:09)
[2017-08-20] MEDS: amLODIPine BESYLATE 10 MG TABLET (FP) PO SCH (10:09)
[2017-08-20] MEDS: LISINOPRIL 10 MG TABLET (FP) PO SCH (10:09)
[2017-08-20] MEDS: NICOTINE 14 MG/24 HOURS TOPICAL PATCH TD SCH (10:09)
[2017-08-20] MEDS: PRENATAL VITAMINS W/ FOLIC ACID TABLET (FP) PO SCH (10:09)
[2017-08-20] MEDS: PANTOPRAZOLE 40 MG TABLET (FP) PO SCH (10:09)
[2017-08-20] MEDS: diphenhydrAMINE HCL 25 MG CAPSULE (FP) PO PRN (21:30)
[2017-08-20] MEDS: THIAMINE HCL 100 MG TABLET (FP) PO SCH (21:30)
[2017-08-21] MEDS: SERTRALINE HCL 50 MG TABLET (FP) PO SCH (10:00)
[2017-08-21] MEDS: PRENATAL VITAMINS W/ FOLIC ACID TABLET (FP) PO SCH (10:00)
[2017-08-21] MEDS: LISINOPRIL 10 MG TABLET (FP) PO SCH (10:00)
[2017-08-21] MEDS: amLODIPine BESYLATE 10 MG TABLET (FP) PO SCH (10:00)
[2017-08-21] MEDS: PANTOPRAZOLE 40 MG TABLET (FP) PO SCH (10:00)
[2017-08-21] MEDS: NICOTINE 14 MG/24 HOURS TOPICAL PATCH TD SCH (10:00)
[2017-08-21] MEDS: THIAMINE HCL 100 MG TABLET (FP) PO SCH (21:28)
[2017-08-21] MEDS: diphenhydrAMINE HCL 25 MG CAPSULE (FP) PO PRN (21:28)
[2017-08-22 06:44] VITALS: BP 129/77; PULSE 68; TEMP 97.3
--- NOTE | 2017-08-22 10:08 | PN ---
Psychiatric Progress Note Vital Signs: Vital Signs Period Temp Pulse Resp BP Sys/Brian Pulse Ox Last 24 Hr 97.3 F 68 16-18 129/77 Date of Session: 08/22/17 Chief Complaint:: discharge visit HPI: Patient has addressed alcohol, cocaine , nicotine dependence comorbid substance induced mood disorder. ROS: Hypertension, hepatitis C and surgery for removal of callous left foot, arthritis medically managed. Current Medications: Active Medications Generic Name Dose Route Start Last Admin Trade Name Freq PRN Reason Stop Dose Admin Acetaminophen 650 mg 07/19/17 18:32 Tylenol - PO Q4H PRN FEVER Al Hydroxide/Mg Hydroxide 30 ml 07/19/17 18:32 Mylanta Oral Suspension - PO Q6H PRN DYSPEPSIA Amlodipine Besylate 10 mg 07/27/17 10:00 08/21/17 10:00 Norvasc - PO 10 mg DAILY ALEJANDRA Administration Diphenhydramine HCl 25 mg 07/27/17 10:41 08/21/17 21:28 Benadryl - PO 25 mg HS PRN Administration INSOMNIA Eucalyptus/Menthol/Phenol/Sorbitol 1 each 07/19/17 18:32 Cepastat Lozenge - MM Q4H PRN SORE THROAT Guaifenesin 10 ml 07/19/17 18:32 07/22/17 18:42 Robitussin Dm - PO 10 ml Q6H PRN Administration COUGH Lisinopril 10 mg 07/21/17 10:00 08/21/17 10:00 Prinivil PO 10 mg DAILY ALEJANDRA Administration Loperamide HCl 4 mg 07/19/17 18:32 Imodium - PO Q6H PRN DIARRHEA Magnesium Citrate 300 ml 07/19/17 18:32 Citroma - PO Q48H PRN CONSTIPATION Magnesium Hydroxide 30 ml 07/19/17 18:32 Milk Of Magnesia - PO DAILY PRN CONSTIPATION Nicotine 14 mg 07/19/17 19:15 08/21/17 10:00 Nicoderm Patch - TD Not Given DAILY ALEJANDRA Nicotine Polacrilex 2 mg 07/19/17 18:32 Nicorette Gum - BC Q2H PRN NICOTINE REPLACEMENT RX Ondansetron HCl 8 mg 07/26/17 13:15 Zofran Odt - SL Q6H PRN NAUSEA AND/OR VOMITING Pantoprazole Sodium 40 mg 07/26/17 14:00 08/21/17 10:00 Protonix - PO 40 mg DAILY ALEJANDRA Administration Multivit/Folic Acid/Iron 1 tab 07/20/17 10:00 08/21/17 10:00 Vitamins ([facility]) - PO 1 tab DAILY ALEJANDRA Administration Pseudoephedrine/Triprolidine 1 combo 07/19/17 18:32 Actifed - PO TID PRN NASAL CONGESTION Sertraline HCl 100 mg 07/20/17 10:00 08/21/17 10:00 Zoloft - PO 100 mg DAILY ALEJANDRA Administration Thiamine HCl 100 mg 07/19/17 22:00 08/21/17 21:28 Vitamin B1 - PO 100 mg HS ALEJANDRA Administration Current Side Effect: No Lab tests ordered: No Lab tests reviewed: Yes Provider note:: Patient has completed today his treatment and met his goals, will continue to address his issues at the next level of care, he was referred to the [facility] in [place]. He gained insight into his addiction, understands that he ovi to continue maintain abstience due to his medical contintion, was encouraged to utilize all supports to prevent relapses. He continue finding Zoloft being effectvive in terms of anxiety reduction and mood improvement, scripts provided for 30 days, he is stable for discharge today. Total face to face time:: 30 Mental Status Exam - Mental Status Exam Alert and Oriented to: Time, Place, Person Cognitive Function: Good Mood: Hopeful Affect: Appropriate, Mood Congruent Patient Behavior: Appropriate, Cooperative Speech Pattern: Clear, Appropriate Voice Loudness: Normal Thought Process: Intact, Goal Oriented Thought Disorder: Not Present Hallucinations: Denies Suicidal Ideation: Denies Homicidal Ideation: Denies Insight/Judgement: Fair Sleep: Fair Appetite: Fair Muscle strength/Tone: Normal Gait/Station: Other (walks with a cane) Psychiatric Treatment Plan - Problem List (1) Ambulates with cane Current Visit: Yes (2) Hepatitis C Current Visit: Yes (3) Alcohol dependence Current Visit: No (4) Cocaine dependence Current Visit: No (5) Substance induced mood disorder Current Visit: No (6) Nicotine dependence Current Visit: No Qualifiers: Nicotine product type: cigarettes Substance use status: in withdrawal Qualified Code(s): F17.213 - Nicotine dependence, cigarettes, with withdrawal
[2017-08-22] MEDS: LISINOPRIL 10 MG TABLET (FP) PO SCH (10:10)
[2017-08-22] MEDS: SERTRALINE HCL 50 MG TABLET (FP) PO SCH (10:10)
[2017-08-22] MEDS: PANTOPRAZOLE 40 MG TABLET (FP) PO SCH (10:11)
[2017-08-22] MEDS: PRENATAL VITAMINS W/ FOLIC ACID TABLET (FP) PO SCH (10:11)
[2017-08-22] MEDS: amLODIPine BESYLATE 10 MG TABLET (FP) PO SCH (10:11)
[2017-08-22] MEDS: NICOTINE 14 MG/24 HOURS TOPICAL PATCH TD SCH (10:11)
== END 2017-08-22 11:50 | disposition home or self-care (01) | DRG 895 ==
LOC: YASAS 08:19 → Y3W 18:15 → Y6N 20:41 → Y5N 07-25 15:10
PROVIDERS: ADMIT Psychiatry & Neurology Psychiatry; ATTEND Internal Medicine
PROC: HZ2ZZZZ Detoxification Services for Substance Abuse Treatment (ICD-10-PCS; principal; 2017-07-19)
PROC: HZ42ZZZ Group Counseling for Substance Abuse Treatment, Cognitive-Behavioral (ICD-10-PCS; 2017-07-25)
DX: F10.230 Alcohol dependence with withdrawal, uncomplicated (principal); F14.20 Cocaine dependence, uncomplicated; F19.282 Other psychoactive substance dependence with psychoactive substance-induced sleep disorder; E46 Unspecified protein-calorie malnutrition; F17.213 Nicotine dependence, cigarettes, with withdrawal; F19.24 Other psychoactive substance dependence with psychoactive substance-induced mood disorder; F32.9 Major depressive disorder, single episode, unspecified; I10 Essential (primary) hypertension; B18.2 Chronic viral hepatitis C; G47.00 Insomnia, unspecified; M19.90 Unspecified osteoarthritis, unspecified site; T81.89XA Other complications of procedures, not elsewhere classified, initial encounter; R26.2 Difficulty in walking, not elsewhere classified; Z99.89 Dependence on other enabling machines and devices; Z68.20 Body mass index [BMI] 20.0-20.9, adult; Z87.898 Personal history of other specified conditions
CPT/HCPCS: 36415; 71046-TC-FY; 80053; 81003; 85027; 86593; 87389; 93005; 93010; 99282-25; Q0162